=== PATIENT | female | born 1965 | race Caucasian/White ===

== ENCOUNTER 2017-11-03 07:42 | Outpatient (RCR) | payer MEDICARE, MEDICAID ==
[~2017-11-03 07:42] MED LIST: ABILIF5PT PO; ACET-1966 PO; ACET-2043 PO; ACET500L35 PO; ALBU1.257 IH; ALBU8.5H12 IH; ALE70 PO; ARI2 PO; AZIT-1 PO; BACOUD TP; BISA-236 RC; CALC-515 PO; CALC-707 PO; CALC-762 PO; CALC-845 PO; CALC1TAB24 PO; CALC1TAB88 PO; CALC500T6 PO; CHLO1LIQ2 MC; CHLORHEXIDINE MT; CLIN300C91 PO; CLO5 PO; CLON-331 PO; CLON0.5T66 PO; DIV250 PO; DIV500ER PO; DIVA125C12 PO; DOCU50LI PO; DOCU60SY PO; DUL30 PO; ENOX40DI8 SQ; GUAI-244 PO; GUAI-537 PO; HYDR-6045 RC; HYDR12.556 PO; HYDR12.558 PO; HYDR28.415 TP; HYDR28GE3 TP; LEV75 PO; LEVA1.2527 IH; LEVE100034 PO; LEVE500 PO; LEVO-3 PO; LEVO-85 PO; LEVO100T95 PO; LEVO88TA42 PO; LOPE-84 PO; LOR5/325 PO; LORA2VIA IV; MAG-66 PO; MELA1DRO PO; MELA3TAB45 PO; MENT118G TP; METH85CR12 TP; MOM PO; MULT-1077 PO; MULT-1081 PO; MULT-820 PO; NSNAS; OSE75 PO; OXYGENHOME INH; OXYM-15 NS; RAN150 PO; RANI75TA5 PO; SCOT TD; SEN100 PO; SERT-179 PO; SERT25TA90 PO; TYLENOL#3; [UNRECOGNIZED DRUG - CODE] PO; [UNRECOGNIZED DRUG - CODE] PO; [UNRECOGNIZED DRUG - CODE] PO; [UNRECOGNIZED DRUG - CODE] TP; [UNRECOGNIZED DRUG - CODE] TP; [UNRECOGNIZED DRUG - OTHER] IV
[2017-11-03] MEDS ORDERED: NS(*) 0.9% 100 ML BAG 100 ML IVPB PRN (08:25)
[2017-11-03] MEDS ORDERED: DEXTROSE 5%(*) 100 ML BAG 100 ML IVPB PRN (08:25)
[2017-11-03] MEDS ORDERED: LIDOCAINE/SOD BICARB 8.4% SYR ID PRN (08:25)
[2017-11-03 10:29] VITALS: BP 124/82
[2017-11-03] MEDS ORDERED: ZOLEDRONIC ACID 5 MG/100ML BTL 100 ML IVPB ONE (11:15)
[2017-11-03] MEDS ORDERED: DULO60CA7 (12:19)
[2017-11-03] MEDS ORDERED: DOCU50LI PO (12:19)
[2017-11-03] MEDS ORDERED: GUAI-244 PO (12:19)
[2017-11-03] MEDS ORDERED: RANI-366 PO (12:19)
[2017-11-03] MEDS ORDERED: [UNRECOGNIZED DRUG - CODE] PO (12:19)
== END 2017-12-06 08:56 | disposition home or self-care (01) ==
LOC: SPU 07:42
PROVIDERS: ATTEND Family Medicine
DX: M81.8 Other osteoporosis without current pathological fracture (principal)
CPT/HCPCS: 82565; 96361; 96365; J3489; J7050

== ENCOUNTER 2018-02-21 13:51 | Emergency (ER) | payer MEDICARE, MEDICAID ==
[~2018-02-21 13:51] MED LIST changes: +DULO60CA7; -LORA2VIA IV; +LORA2VIA2 IV; +RANI-366 PO; +[UNRECOGNIZED DRUG - CODE] PO
[2018-02-21] MEDS ORDERED: NS(*) 0.9% 500 ML BAG 500 ML IV ONE (14:07)
--- NOTE | 2018-02-21 14:14 | ER Report ---
History and Physical Time Seen By MD: 14:00 Hx. of Stated Complaint: pt walking and had a 1 minute petit mal seizure and fell on ground on L side, lethargic for about 8 min after, 45 min ago HPI/ROS CHIEF COMPLAINT: Seizure resulting in a fall HISTORY OF PRESENT ILLNESS: 52-year-old female patient presents to the emergency room with complaint of a seizure which resulted in a fall. The patient is a resident of the [facility], and does have a history of seizures. Patient does wear a protective helmet to protect her head which she does have seizures and falls. Patient's caregiver states that she was walking outside when she started having seizure and fell onto her left side. Leading hard on her left hip and hitting her head on the ground. She states that the seizure lasted approximately 90 seconds to 2 minutes. She states that her recovery time was proximally 8 minutes. Patient has since been yelling out, which is an indication of either pain or anxiety. REVIEW OF SYSTEMS: Respiratory: No cough, no dyspnea. Cardiovascular: No chest pain, no palpitations. Gastrointestinal: No vomiting, no abdominal pain. Musculoskeletal: As noted above Allergies: Coded Allergies: Penicillins (Verified Allergy, Mild, SWELLING, 02/24/17) 07/16/13- Spoke with patient's mother and clarified allergy to PCN. Reported swelling and hives when given penicillin as an . Patient tolerates Imipenem. Lauren Ocampo, PharmD, BCOP ibuprofen (Verified Allergy, Mild, CANNOT TAKE WHILE ON DEPAKOTE, 02/24/17) aspirin (Verified Adverse Reaction, Mild, CANNOT TAKE WHILE ON DEPAKOTE, 02/24/17) naproxen (Verified Adverse Reaction, Mild, CANNOT TAKE WHILE ON DEPAKOTE, 02/24/17) Home Meds Reported Medications Docusate Sodium (SILACE) 50 Mg/5 Ml Liquid, 10 MG PO TID 11/03/17 Ranitidine Hcl (ZANTAC) 150 Mg Tablet, 150 MG PO BID, TAB 11/03/17 Calcium Carbonate/Vitamin D3 (OYSTER SHELL CALCIUM +D TABLET) 1 Each Tablet, 1 EACH PO 11/03/17 Duloxetine HCl (Duloxetine HCl) 60 Mg Capsule. 11/03/17 Methyl Salicylate/Menthol (THERA-GESIC ANALGESIC CREAM) 85 Gm Cream..g., 85 GM TP PRN 04/09/15 Docusate Sodium (SILACE) 60 Mg/15 Ml Syrup, 60 MG PO TID 04/09/15 Skin Cleanser (PERIFRESH) 3,840 Ml Cleanser, 3840 ML TP PRN 04/09/15 Oxygen (OXYGEN) Inha, 3 L INH QPM, L 04/09/15 Oxygen (OXYGEN) Inha, 1 L INH DAILY, L 04/09/15 Calcium Carbonate/Vitamin D3 (OYSTER SHELL CALCIUM + D TAB) 1 Each Tablet, 1 EACH PO BID 04/09/15 Melatonin (MELATONIN) 3 Mg Tablet.er, 1.5 MG PO DAILY 04/09/15 Levothyroxine Sodium (LEVOTHYROXINE SODIUM) 100 Mcg Tablet, 100 MCG PO QDAY 04/09/15 Levetiracetam (LEVETIRACETAM) 1,000 Mg Tablet, 1000 MG PO BID, TAB 04/09/15 Hydrocortisone/Aloe Vera (HYDROCORTISONE 1% OINTMENT) 28 Gm Oint...g., 28 GM TP PRN 04/09/15 Multivit With Calcium,Iron,Min (ESSENTIAL DAILY) 1 Each Tablet, 1 EACH PO DAILY 04/09/15 Divalproex Sodium (DIVALPROEX SODIUM) 125 Mg Cap.sprink, 375 MG PO DAILY, CAP 04/09/15 Divalproex Sodium (DIVALPROEX SODIUM) 125 Mg Cap.sprink, 250 MG PO TID, CAP 04/09/15 Clonazepam (CLONAZEPAM) 0.5 Mg Tablet, 0.5 MG PO TID, #6 TAB 04/09/15 Saline (AYR SALINE NASAL GEL) 14.1 Gm Gel, 14.1 GM NA PRN, GEL 04/09/15 Calcium Carbonate/Mag Hydrox (ANTACID CHEWABLE TABLET) 1 Each Tab.chew, 500 MG PO PRN, TAB.CHEW 04/09/15 Mag Hydrox/Al Hydrox/Simeth (MAALOX MAXIMUM STRENGTH SUSP) 355 Ml Oral.susp, 5 ML PO PRN PRN for GAS/HEARTBURN 07/08/13 Hydrochlorothiazide (HYDROCHLOROTHIAZIDE) 12.5 Mg Capsule, 1 TAB PO QDAY, CAPSULE TAKE ONE CAPSULE BY MOUTH EVERY DAY 07/08/13 Menthol (BIOFREEZE) 118 Ml Gel..ml., 1 GABRIELLE TP PRN for PAIN 07/08/13 Bacitracin (BACITRACIN ZINC) 0.9 Gm Oint, 0.9 GM TP PRN for RASH 07/08/13 Hydrocortisone (ANUSOL-HC) 30 Gm Cream..g., 30 GM RC PRN for HEMORRHOIDS 07/08/13 Loperamide Hcl (ANTI-DIARRHEAL) 2 Mg Capsule, 2 MG PO PRN PRN for DIARRHEA, CAPSULE 2 tabs after 2 loose stools 07/08/13 Magnesium Hydroxide (MILK OF MAGNESIA) 400 Mg/5 Ml Oral.susp, 30 ML PO PRN PRN for CONSTIPATION 04/18/13 Chlorhexidine (CHLORHEXIDINE FLAVOR) 1 Ml Liquid, 18 ML MC QODAY 04/18/13 Aripiprazole (ABILIFY) 5 Mg Tablet, 10 MG PO QHS 03/21/13 Duloxetine Hcl (Cymbalta) 30 Mg Capcr, 60 MG PO DAILY 03/01/12 Calcium Carbonate/Simethicone (Tums Plus Tab Chew Assorted) 1 Tab.chew Tab.chew, 1 TAB.CHEW PO TID, 0 Refills 07/21/09 Discontinued Reported Medications Guaifenesin (ROBAFEN) 100 Mg/5 Ml Liquid, 100 MG PO PRN 11/03/17 Guaifenesin (WAL-TUSSIN) 100 Mg/5 Ml Liquid, 10 ML PO Q4-6H PRN for prn 04/09/15 Guaifenesin (ROBAFEN) 100 Mg/5 Ml Liquid, 100 MG PO PRN 04/09/15 Ranitidine Hcl (RANITIDINE HCL) 75 Mg Tablet, 150 MG PO BID 04/09/15 Skin Cleanser (PERIFRESH) 3,840 Ml Cleanser, 3840 ML TP BID 04/09/15 Hydrocortisone (CORTIZONE 10) 28 Gm Gel..gram., 28 GM TP PRN for ITCHING 07/08/13 Discontinued Scripts Levofloxacin 500 Mg Tab (LEVAQUIN 500 MG TAB) 500 Mg Tablet, 500 MG PO q24 for 5 Days, #5 TAB 0 Refills Prov:CONSTANTIN JEFF SPLICER APPRENTICE 08/28/16 Past Medical/Surgical History Patient has a past medical history of seizures, pneumonia, recurrent pronation of right ankle, scoliosis, osteoporosis, foot fracture, C6, C7 fracture, hypothyroidism, developmental delayed Patient has a surgical history of vagus nerve stimulator. Reviewed Nurses Notes: Yes Hx Smoking: No Smoking Status: Never Smoker Exposure to Second Hand Smoke?: No Hx Substance Use Disorder: No Hx Alcohol Use: No Constitutional Vital Sign - Last 24 Hours 02/21/18 02/21/18 02/21/18 02/21/18 14:04 14:06 14:21 14:36 Temp 97.0 Pulse 110 109 118 ??? Resp 18 Pulse Ox 89 80 92 O2 Delivery Room Air 02/21/18 02/21/18 02/21/18 02/21/18 14:51 15:06 15:21 15:36 Pulse ? 115 ??? Pulse Ox 91 02/21/18 02/21/18 02/21/18 02/21/18 15:41 15:46 15:58 16:01 Pulse 97 104 B/P (MAP) 144/92 (109) 126/90 (102) Pulse Ox 99 99 02/21/18 02/21/18 02/21/18 02/21/18 16:16 16:20 16:31 16:31 Pulse 101 99 Resp 18 B/P (MAP) 126/91 (103) Pulse Ox 100 98 O2 Flow Rate 2.0 02/21/18 02/21/18 02/21/18 02/21/18 16:40 16:46 17:00 17:01 Pulse 107 112 Resp 13 12 B/P (MAP) 109/83 (92) 125/85 (98) Pulse Ox 100 99 02/21/18 02/21/18 02/21/18 02/21/18 17:16 17:20 17:31 17:40 Pulse 108 ??? Resp 7 B/P (MAP) 121/114 (116) ???/??? (1665) Pulse Ox 98 97 02/21/18 02/21/18 02/21/18 02/21/18 17:45 18:00 18:15 18:20 Pulse ??? 96 88 Resp 14 12 B/P (MAP) 111/76 (88) 114/93 (100) Pulse Ox 98 99 02/21/18 02/21/18 02/21/18 02/21/18 18:30 18:40 18:45 19:00 Pulse 100 93 87 Resp 14 17 12 B/P (MAP) 106/75 (85) 100/77 (85) Pulse Ox 97 94 94 02/21/18 02/21/18 02/21/18 02/21/18 19:15 19:20 19:30 19:40 Pulse 88 91 Resp 12 16 B/P (MAP) 106/70 (82) 101/74 (83) Pulse Ox 94 90 02/21/18 02/21/18 02/21/18 19:45 20:00 20:15 Pulse 90 ? Resp 15 Pulse Ox 94 Physical Exam General Appearance: The patient is alert, has no immediate need for airway protection and no current signs of toxicity. Respiratory: Chest is non tender, lungs are clear to auscultation. Cardiac: regular rate and rhythm Gastrointestinal: Abdomen is soft and non tender, no masses, bowel sounds normal. Musculoskeletal: Neck: Neck is supple and non tender. Extremities have full range of motion and are non tender. Patient is yelling out whenever I touch her, there is no bruising noted. Patient was holding a large glass of soda from [employer] in her left hand. Skin: No rashes or lesions. DIFFERENTIAL DIAGNOSIS: After history and physical exam differential diagnosis was considered for contusion, fracture, intracranial hemorrhage. Medical Decision Making Data Points Result Diagram: 02/21/18 1619 02/21/18 1619 Laboratory Hematology Test 02/21/18 16:19 Red Blood Count 4.71 M/uL (4.17-5.56) Mean Corpuscular Volume 98.9 fL (80.0-96.0) Mean Corpuscular Hemoglobin 33.4 pg (26.0-33.0) Mean Corpuscular Hemoglobin Concent 33.7 g/dL (32.0-36.0) Red Cell Distribution Width 13.5 % (11.5-14.5) Mean Platelet Volume 8.9 fL (7.2-11.1) Neutrophils (%) (Auto) 64.1 % (39.4-72.5) Lymphocytes (%) (Auto) 23.1 % (17.6-49.6) Monocytes (%) (Auto) 11.8 % (4.1-12.4) Eosinophils (%) (Auto) 0.4 % (0.4-6.7) Basophils (%) (Auto) 0.6 % (0.3-1.4) Nucleated RBC Relative Count (auto) 0.0 /100WBC Neutrophils # (Auto) 6.3 K/uL (2.0-7.4) Lymphocytes # (Auto) 2.3 K/uL (1.3-3.6) Monocytes # (Auto) 1.2 K/uL (0.3-1.0) Eosinophils # (Auto) 0.0 K/uL (0.0-0.5) Basophils # (Auto) 0.1 K/uL (0.0-0.1) Nucleated RBC Absolute Count (auto) 0.00 K/uL Peripheral Blood Smear Yes Y/N Prothrombin Time 12.2 seconds (12.0-14.4) Prothromb Time International Ratio 0.90 Activated Partial Thromboplast Time 25 seconds (23-35) Sodium Level 140 mmol/L (137-145) Potassium Level 3.7 mmol/L (3.5-5.0) Chloride Level 99 mmol/L (98-107) Carbon Dioxide Level 34 mmol/L (22-31) Blood Urea Nitrogen 18 mg/dl (7-18) Creatinine 0.70 mg/dl (0.52-1.04) Glomerular Filtration Rate Calc > 60.0 Random Glucose 120 mg/dl (75-110) Calcium Level 9.7 mg/dl (8.4-10.2) Total Bilirubin 0.2 mg/dl (0.2-1.3) Aspartate Amino Transf (AST/SGOT) 40 U/L (0-35) Alanine Aminotransferase (ALT/SGPT) 22 U/L (0-56) Alkaline Phosphatase 64 U/L (0-126) Total Protein 6.8 g/dl (6.3-8.2) Albumin 3.6 g/dl (3.5-5.0) Amylase Level 109 U/L (0-110) Lipase 125 U/L (23-300) Human Chorionic Gonadotropin, Qual Negative (NEGATIVE) Chemistry Test 02/21/18 16:19 White Blood Count 9.9 k/uL (4.5-11.0) Red Blood Count 4.71 M/uL (4.17-5.56) Hemoglobin 15.7 g/dL (12.0-16.0) Hematocrit 46.6 % (34.0-47.0) Mean Corpuscular Volume 98.9 fL (80.0-96.0) Mean Corpuscular Hemoglobin 33.4 pg (26.0-33.0) Mean Corpuscular Hemoglobin Concent 33.7 g/dL (32.0-36.0) Red Cell Distribution Width 13.5 % (11.5-14.5) Platelet Count 144 K/uL (150-450) Mean Platelet Volume 8.9 fL (7.2-11.1) Neutrophils (%) (Auto) 64.1 % (39.4-72.5) Lymphocytes (%) (Auto) 23.1 % (17.6-49.6) Monocytes (%) (Auto) 11.8 % (4.1-12.4) Eosinophils (%) (Auto) 0.4 % (0.4-6.7) Basophils (%) (Auto) 0.6 % (0.3-1.4) Nucleated RBC Relative Count (auto) 0.0 /100WBC Neutrophils # (Auto) 6.3 K/uL (2.0-7.4) Lymphocytes # (Auto) 2.3 K/uL (1.3-3.6) Monocytes # (Auto) 1.2 K/uL (0.3-1.0) Eosinophils # (Auto) 0.0 K/uL (0.0-0.5) Basophils # (Auto) 0.1 K/uL (0.0-0.1) Nucleated RBC Absolute Count (auto) 0.00 K/uL Peripheral Blood Smear Yes Y/N Prothrombin Time 12.2 seconds (12.0-14.4) Prothromb Time International Ratio 0.90 Activated Partial Thromboplast Time 25 seconds (23-35) Glomerular Filtration Rate Calc > 60.0 Calcium Level 9.7 mg/dl (8.4-10.2) Total Bilirubin 0.2 mg/dl (0.2-1.3) Aspartate Amino Transf (AST/SGOT) 40 U/L (0-35) Alanine Aminotransferase (ALT/SGPT) 22 U/L (0-56) Alkaline Phosphatase 64 U/L (0-126) Total Protein 6.8 g/dl (6.3-8.2) Albumin 3.6 g/dl (3.5-5.0) Amylase Level 109 U/L (0-110) Lipase 125 U/L (23-300) Human Chorionic Gonadotropin, Qual Negative (NEGATIVE) Coagulation Test 02/21/18 16:19 Prothrombin Time 12.2 seconds Prothromb Time International Ratio 0.90 Activated Partial Thromboplast Time 25 seconds EKG/Imaging Imaging EXAMINATION: CT Cervical spine without intravenous contrast HISTORY: Trauma. Fall with pain. COMPARISON: 02/24/2017. TECHNIQUE: Axial images were obtained from the skull base through the upper thoracic spine without IV contrast administration. Coronal and sagittal reformatted images were obtained from the axial source data. One of the following dose optimization techniques was utilized in the performance of this exam: Automated exposure control; adjustment of the mA and/or kV according to the patient's size; or use of an iterative reconstruction technique. Specific details can be referenced in the facility's radiology CT exam operational policy. FINDINGS: Alignment: Normal. Cranio-cervical junction: Negative. Vertebral bodies: No evidence of acute fracture. Posterior elements: No evidence of acute fracture. Multilevel facet hypertrophy. Bony ankylosis of the right C3-4 facet joint. Hardware: None. Disc Spaces: Endplate osteophytes throughout the cervical spine. Intervertebral disc heights are maintained. Soft tissues: No paraspinal soft tissue swelling or hematoma. Fat stranding in the soft tissues near the right shoulder. Visualized upper chest: Left vagal nerve stimulator. IMPRESSION: No evidence of acute fracture of the cervical spine. Multilevel disc and facet degenerative changes in the cervical spine. Soft tissues appear swollen near the right shoulder. Report Dictated By: Arie Jeff MD at 02/21/2018 6:29 PM Report E-Signed By: Arie Jeff MD at 02/21/2018 6:43 PM CHEST SINGLE AP Indication: Fall with pain.. Comparison: 08/28/2016. Findings: Cardiac silhouette remains mildly enlarged but unchanged. Mediastinal silhouet te and pulmonary vessels within normal limits. Lung volumes are decreased bilaterally causing accentuation of interstitium. No focal areas of consolidation. No pneumothorax or pleural effusion. No discrete nodule. Upper abdomen is unremarkable. No acute bony abnormality. Electronic device is again seen overlying the left chest. IMPRESSION: 1. No acute cardiopulmonary process. No indication of thoracic trauma. Report Dictated By: Javier Worthy at 02/21/2018 4:19 PM Report E-Signed By: Javier Worthy at 02/21/2018 4:20 PM EXAMINATION: Head CT without intravenous contrast HISTORY: Trauma. COMPARISON: 02/24/2017. TECHNIQUE: Contiguous axial images were obtained from the skull base to the vertex without intravenous contrast. Sagittal and coronal reformatted images are also submitted. One of the following dose optimization techniques was utilized in the performance of this exam: Automated exposure control; adjustment of the mA and/or kV according to the patient's size; or use of an iterative reconstruction technique. Specific details can be referenced in the facility's radiology CT exam operational policy. 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 Unchanged region of encephalomalacia in the lateral left temporal lobe. Small region of encephalomalacia in the lateral right temporal lobe is unchanged. No midline shift, acute hemorrhage, acute infarct, or mass. Calvarium / scalp: Mild right frontal, left frontal, and left occipital scalp soft tissue thickening which is unchanged. Hyperostosis frontalis interna. No acute fracture. Skull base / visualized face: Mild rightward bowing of the nasal septum. Visualized sinuses / orbits: Trace mucosal thickening in the maxillary sinuses. IMPRESSION: No CT evidence of acute intracranial pathology. Unchanged enlargement of the lateral ventricles. Unchanged regions of encephalomalacia in the lateral temporal lobes. Report Dictated By: Arie Jeff MD at 02/21/2018 6:09 PM Report E-Signed By: Arie Jeff MD at 02/21/2018 6:25 PM EXAMINATION: Pelvis radiograph single view HISTORY: Fall with pain. COMPARISON: 02/24/2017. FINDINGS: A single AP supine view of the pelvis is obtained. Bones: No evidence of acute fracture. Joint spaces: Sacroiliac joints, pubic symphysis, and hip joints are unremarkable. There are multilevel disc and facet degenerative changes in the lumbar spine. Hardware: None. Alignment: Mild left convex curvature of the lumbar spine. Soft tissues: Focal calcification in the soft tissues lateral to the right hip, unchanged. IMPRESSION: No evidence of acute fracture of the pelvis. Report Dictated By: Arie Jeff MD at 02/21/2018 6:25 PM Report E-Signed By: Arie Jeff MD at 02/21/2018 6:29 PM ED Course/Re-evaluation ED Course Patient was admitted to an exam room, history and physical were obtained. Differential diagnoses were considered. On examination patient was complaining of pain all over, heart is regular, abdomen was soft and non-tender, lungs are clear. With the patient having a seizure and falling she did a chest x-ray, pelvis x-ray and CT scan of the head and cervical spine were done. Patient was placed in a c-collar. Due to the patient's mental condition we were unable to do that without sedating her. We did initially try some Zyprexa with no improvement. We also gave patient 200 mg of IM ketamine. She was able to relax, falsely. We were able to get IV started, labs checked which were unremarkable and a an hCG. By the time we did have those results the patient had awoken. We were unable to get the imaging without sedating her again. We did give her an additional 100 mg of ketamine IV. We will get the imaging studies which were negative. The patient was able to rest. When she was fully awake, was able walk to the bathroom we did discharge patient home. She is continue with her normal medications. She is return to the emergency room with any other concerns. The caregiver verbalized understanding and agreement with plan. Decision to Disposition Date: Feb 21, 2018 Decision to Disposition Time: 19:42 Depart Departure Latest Vital Signs Vital Signs Date Time Temp Pulse Resp B/P (MAP) Pulse Ox O2 Delivery O2 Flow Rate FiO2 02/21/18 20:15 ??? 02/21/18 19:45 15 94 02/21/18 19:40 101/74 (83) 02/21/18 16:31 2.0 02/21/18 14:04 97.0 Room Air Impression: Primary Impression: Seizure Additional Impression: Contusion of left hip Condition: Stable Disposition: HOME OR SELF-CARE Referrals: DIONI FLETCHER DO (PCP) Patient Instructions: Contusion in Adults (ED) Additional Instructions: Limit activity by pain. Increase fluid intake. Get plenty of rest. Continue with your normal medications. Return to the ER if condition worsens. Follow up with your primary care provider in the next week. Take Tylenol as needed for pain. Wear your helmet when you are up moving around. Problem Qualifiers Additional Impression: Contusion of left hip Encounter type: initial encounter Qualified Codes: S70.02XA - Contusion of left hip, initial encounter OLESYA RODAS Feb 21, 2018 14:14
[2018-02-21] MEDS ORDERED: OLANZapine 10 MG VIAL IM ONLY ONE (14:20)
[2018-02-21] MEDS ORDERED: WATER STERILE 10 ML VIAL IM ONLY ONE (14:20)
[2018-02-21] MEDS ORDERED: KETAMINE HCL 500 MG/5 ML VIAL IM ONE (15:05)
[2018-02-21] MEDS ORDERED: LORazepam 2 MG/ML VIAL IVP ONE (16:05)
--- NOTE | 2018-02-21 16:25 | RADIOLOGY IMAGING REPORT ---
FACILITY: [facility] - [place] PATIENT NAME: Glenys Saucedo : 1965 MR: [id number] V: [id number] EXAM DATE: ORDERING PHYSICIAN: OLESYA RODAS TECHNOLOGIST: Location: [facility] - [place] Patient: Glenys Saucedo : 1965 Visit/Account:[id number] Date of Sevice: 02/21/2018 CHEST SINGLE AP Indication: Fall with pain.. Comparison: 08/28/2016. Findings: Cardiac silhouette remains mildly enlarged but unchanged. Mediastinal silhouette and pulmonary vesse ls within normal limits. Lung volumes are decreased bilaterally causing accentuation of interstitium. No focal areas of conso lidation. No pneumothorax or pleural effusion. No discrete nodule. Upper abdomen is unremarkable. No acute bony abnormality. Electronic device is again seen overlying the left chest. IMPRESSION: 1. No acute cardiopulmonary process. No indication of thoracic trauma. Report Dictated By: Javier Worthy at 02/21/2018 4:19 PM Report E-Signed By: Javier Worthy at 02/21/2018 4:20 PM WSN:[id number]
[2018-02-21 16:31] LABS: PLATELET COUNT, AUTOMATED 144 K/uL (150-450)
[2018-02-21 16:59] LABS: INR 0.9
[2018-02-21] MEDS ORDERED: KETAMINE HCL 500 MG/5 ML VIAL IVP ONE (17:25)
[2018-02-21] MEDS ORDERED: DIPHTH/TETANUS/ACEL. PERTUSSIS IM ONLY ONE (18:15)
--- NOTE | 2018-02-21 18:28 | RADIOLOGY IMAGING REPORT ---
FACILITY: [facility] - [place] PATIENT NAME: Glenys Saucedo : 1965 MR: [id number] V: [id number] EXAM DATE: ORDERING PHYSICIAN: OLESYA RODAS TECHNOLOGIST: [place] [facility] [place] Glenys Sauced[place] : 1965 Visit/Account:[id number] Date of Sevice: 02/21/2018 EXAMINATION: Head CT without intravenous contrast HISTORY: Trauma. COMPARISON: 02/24/2017. TECHNIQUE: Contiguous axial images were obtained from the skull base to the vertex without intraven ous contrast. Sagittal and coronal reformatted images are also submitted. One of the following dose optimization techniques was utilized in the performance of this exam: Autom ated exposure control; adjustment of the mA and/or kV according to the patient's size; or use of an i terative reconstruction technique. Specific details can be referenced in the facility's radiology C T exam operational policy. FINDINGS: Brain and intracranial structures: Stable enlargement of the lateral ventricles with disproportionat e prominence of the occipital horns of the lateral ventricles (colpocephaly). Unchanged region of enc ephalomalacia in the lateral left temporal lobe. Small region of encephalomalacia in the lateral righ t temporal lobe is unchanged. No midline shift, acute hemorrhage, acute infarct, or mass. Calvarium / scalp: Mild right frontal, left frontal, and left occipital scalp soft tissue thickening which is unchanged. Hyperostosis frontalis interna. No acute fracture. Skull base / visualized face: Mild rightward bowing of the nasal septum. Visualized sinuses / orbits: Trace mucosal thickening in the maxillary sinuses. IMPRESSION: No CT evidence of acute intracranial pathology. Unchanged enlargement of the lateral ventricles. Unchanged regions of encephalomalacia in the lateral temporal lobes. Report Dictated By: Arie Bird MD at 02/21/2018 6:09 PM Report E-Signed By: Arie Bird MD at 02/21/2018 6:25 PM WSN:[id number]
--- NOTE | 2018-02-21 18:33 | RADIOLOGY IMAGING REPORT ---
FACILITY: [facility] PATIENT NAME: Glenys Saucedo : 1965 MR: [id number] V: [id number] EXAM DATE: ORDERING PHYSICIAN: OLESYA RODAS TECHNOLOGIST: [place] [facility] [place] Patient: Glenys Saucedo : 1965 Visit/Account:[id number] Date of Sevice: 02/21/2018 EXAMINATION: Pelvis radiograph single view HISTORY: Fall with pain. COMPARISON: 02/24/2017. FINDINGS: A single AP supine view of the pelvis is obtained. Bones: No evidence of acute fracture. Joint spaces: Sacroiliac joints, pubic symphysis, and hip joints are unremarkable. There are multile patience disc and facet degenerative changes in the lumbar spine. Hardware: None. Alignment: Mild left convex curvature of the lumbar spine. Soft tissues: Focal calcification in the soft tissues lateral to the right hip, unchanged. IMPRESSION: No evidence of acute fracture of the pelvis. Report Dictated By: Arie Bird MD at 02/21/2018 6:25 PM Report E-Signed By: Arie Bird MD at 02/21/2018 6:29 PM WSN:[id number]
--- NOTE | 2018-02-21 18:47 | RADIOLOGY IMAGING REPORT ---
[place] [facility] [place] Glenys Saucedo : 1965 MR: [id number] V: [id number] EXAM DATE: [id number] ORDERING PHYSICIAN: OLESYA RODAS TECHNOLOGIST: Location: [facility] - [place] Patient: Glenys Saucedo : 1965 Visit/Account:[id number] Date of Sevice: 02/21/2018 EXAMINATION: CT Cervical spine without intravenous contrast HISTORY: Trauma. Fall with pain. COMPARISON: 02/24/2017. TECHNIQUE: Axial images were obtained from the skull base through the upper thoracic spine without I V contrast administration. Coronal and sagittal reformatted images were obtained from the axial [facility] e data. One of the following dose optimization techniques was utilized in the performance of this exam: Autom ated exposure control; adjustment of the mA and/or kV according to the patient's size; or use of an i terative reconstruction technique. Specific details can be referenced in the facility's radiology C T exam operational policy. FINDINGS: Alignment: Normal. Cranio-cervical junction: Negative. Vertebral bodies: No evidence of acute fracture. Posterior elements: No evidence of acute fracture. Multilevel facet hypertrophy. Bony ankylosis of th e right C3-4 facet joint. Hardware: None. Disc Spaces: Endplate osteophytes throughout the cervical spine. Intervertebral disc heights are main tained. Soft tissues: No paraspinal soft tissue swelling or hematoma. Fat stranding in the soft tissues near the right shoulder. Visualized upper chest: Left vagal nerve stimulator. IMPRESSION: No evidence of acute fracture of the cervical spine. Multilevel disc and facet degenerative changes in the cervical spine. Soft tissues appear swollen near the right shoulder. Report Dictated By: Arie Bird MD at 02/21/2018 6:29 PM Report E-Signed By: Arie Bird MD at 02/21/2018 6:43 PM WSN:[id number]
[2018-02-21 19:40] VITALS: BP 101/74
== END 2018-02-21 20:32 | disposition home or self-care (01) ==
LOC: ER 14:10
DX: R56.9 Unspecified convulsions (principal); S70.02XA Contusion of left hip, initial encounter; W18.30XA Fall on same level, unspecified, initial encounter; Y93.01 Activity, walking, marching and hiking
CPT/HCPCS: 36415; 71045; 82150; 83690; 84703; 85025; 85610; 85730; 90471; 90715; 96372; 96374; 96375; 99284; A4216; J2060; J3490; J7040; 70450; 72125; 72170; 82040; 82247; 82310; 82374; 82435; 82565; 82947; 84075; 84132; 84155; 84295; 84450; 84460; 84520; L0172

== ENCOUNTER → 2018-05-12 | Outpatient (REF) | payer MEDICARE, MEDICAID ==
[~2018-05-12] MED LIST changes: -RANI75TA5 PO; +RANI75TA51 PO
== END ==
LOC: ZZSENDIN 10:51
PROVIDERS: ATTEND Family Medicine
DX: R35.0 Frequency of micturition (principal)
CPT/HCPCS: 81001

== ENCOUNTER → 2018-05-12 | Outpatient (CLI) | payer MEDICARE, MEDICAID ==
--- NOTE | 2018-05-12 16:26 | RADIOLOGY IMAGING REPORT ---
[place] [facility] [place] Glenys Saucedo : 1965 MR: [id number] V: [id number] EXAM DATE: ORDERING PHYSICIAN: HAZEL GARCIA TECHNOLOGIST: Location: [facility] - [place] Patient: Glenys Saucedo : 1965 Visit/Account:[id number] Date of Sevice: 05/12/2018 CHEST PA LAT History: Cough. Decreased O2 sats. History of pneumonia. FINDINGS: Comparison studies: Comparison chest x-ray 02/21/2018 and 01/19/2016 Tubes and Lines: None. Lungs and pleura: Interval development of a subtle 2.5 cm nodular opacity along the right cardiac b order probably located in the right middle lobe best seen in the frontal view. Lung parenchyma is ot herwise well-aerated. Mediastinum: normal. Cardiac silhouette: normal . Osseous structures: Unremarkable for age . Additional findings: Implanted neurostimulator again noted. IMPRESSION: Small area of presumed tumefactive consolidation right middle lobe raising concern for early pneumo yomi. I would recommend short-term follow-up since a developing neoplasm cannot be excluded. Report Dictated By: Vamshi Fong MD at 05/12/2018 4:19 PM Report E-Signed By: Vamshi Fong MD at 05/12/2018 4:23 PM WSN:[email or web address]
== END ==
LOC: RAD 15:10
PROVIDERS: ATTEND Family Medicine
DX: R05 Cough (principal)
CPT/HCPCS: 71046

== ENCOUNTER → 2018-05-23 | Outpatient (CLI) | payer MEDICARE, MEDICAID ==
[~2018-05-23] MED LIST changes: -OXYM-15 NS; +OXYM30SP22 NS
--- NOTE | 2018-05-23 11:08 | RADIOLOGY IMAGING REPORT ---
FACILITY: [facility] - [place] PATIENT NAME: Glenys Saucedo : 1965 MR: [id number] V: [id number] EXAM DATE: ORDERING PHYSICIAN: DIONI FLETCHER TECHNOLOGIST: Location: [facility] Patient: Glenys Saucedo : 1965 Visit/Account:[id number] Date of Sevice: 05/23/2018 Exam type: CHEST PA LAT History: Pneumonia Comparison: May 12, 2018. Findings: Patchy airspace consolidation in the right middle lobe appears slightly increased. Mild streaky cons olidation left lung base also new since the prior study. There is no evidence of pleural effusions o r pulmonary edema. Cardiac silhouette is normal in size. Implanted neural stimulator again seen IMPRESSION: 1. Patchy airspace consolidation the right middle lobe slightly increased consistent with the histor y of pneumonia Slight increase in streaky consolidation in the left lung base which may represent atelectasis or dev eloping infiltrate Report Dictated By: Heike Velazquez MD at 05/23/2018 10:37 AM Report E-Signed By: Heike Velazquez MD at 05/23/2018 11:04 AM WSN:[email or web address]
== END ==
LOC: RAD 09:28
PROVIDERS: ATTEND Family Medicine
DX: J18.9 Pneumonia, unspecified organism (principal); J98.11 Atelectasis
CPT/HCPCS: 71046

== ENCOUNTER 2018-06-05 13:33 | Emergency (ER) | payer MEDICARE, MEDICAID ==
--- NOTE | 2018-06-05 14:03 | ER Report ---
History and Physical Time Seen By MD: 14:03 Hx. of Stated Complaint: CAREPROVIDER REPORTS PT HAD A SEIZURE AT ~0700. PT RECENTLY TX FOR PNEUMONIA, FINISHED ABX. PT WAS "UNRESPONSIVE, NOT ACTING HERSELF" HPI/ROS 52-year-old female with a history of seizure disorder and developmental delay. Is a resident at the [facility]. She has been recently treated for pneumonia with antibiotics and is being followed by her primary physician. The staff brought her to the emergency department stating that she normally only has one seizure a month and she has had 3 this month. They also state that she seems tired and not herself. She is otherwise at her baseline, taking by mouth and interacting with other staff. Her seizures are not different, but he doesn't remember was more than her usual. She is not coughing. He is afebrile. She is not short of breath. No nausea vomiting or diarrhea. Remainder of the 14 system rev: Yes Allergies: Coded Allergies: Penicillins (Verified Allergy, Mild, SWELLING, 06/05/18) 07/16/13- Spoke with patient's mother and clarified allergy to PCN. Reported swelling and hives when given penicillin as an infant. Patient tolerates Imipenem. Lauren Ocampo, PharmD, BCOP ibuprofen (Verified Allergy, Mild, CANNOT TAKE WHILE ON DEPAKOTE, 06/05/18) aspirin (Verified Adverse Reaction, Mild, CANNOT TAKE WHILE ON DEPAKOTE, 06/05/18) naproxen (Verified Adverse Reaction, Mild, CANNOT TAKE WHILE ON DEPAKOTE, 06/05/18) Home Meds Reported Medications Docusate Sodium (SILACE) 50 Mg/5 Ml Liquid, 10 MG PO TID 11/03/17 Ranitidine Hcl (ZANTAC) 150 Mg Tablet, 150 MG PO BID, TAB 11/03/17 Calcium Carbonate/Vitamin D3 (OYSTER SHELL CALCIUM +D TABLET) 1 Each Tablet, 1 EACH PO 11/03/17 Duloxetine HCl (Duloxetine HCl) 60 Mg Capsule. 11/03/17 Methyl Salicylate/Menthol (THERA-GESIC ANALGESIC CREAM) 85 Gm Cream..g., 85 GM TP PRN 04/09/15 Docusate Sodium (SILACE) 60 Mg/15 Ml Syrup, 60 MG PO TID 04/09/15 Skin Cleanser (PERIFRESH) 3,840 Ml Cleanser, 3840 ML TP PRN 04/09/15 Oxygen (OXYGEN) Inha, 3 L INH QPM, L 04/09/15 Oxygen (OXYGEN) Inha, 1 L INH DAILY, L 04/09/15 Calcium Carbonate/Vitamin D3 (OYSTER SHELL CALCIUM + D TAB) 1 Each Tablet, 1 EACH PO BID 04/09/15 Melatonin (MELATONIN) 3 Mg Tablet.er, 1.5 MG PO DAILY 04/09/15 Levothyroxine Sodium (LEVOTHYROXINE SODIUM) 100 Mcg Tablet, 100 MCG PO QDAY 04/09/15 Levetiracetam (LEVETIRACETAM) 1,000 Mg Tablet, 1000 MG PO BID, TAB 04/09/15 Hydrocortisone/Aloe Vera (HYDROCORTISONE 1% OINTMENT) 28 Gm Oint...g., 28 GM TP PRN 04/09/15 Multivit With Calcium,Iron,Min (ESSENTIAL DAILY) 1 Each Tablet, 1 EACH PO DAILY 04/09/15 Divalproex Sodium (DIVALPROEX SODIUM) 125 Mg Cap.sprink, 375 MG PO DAILY, CAP 04/09/15 Divalproex Sodium (DIVALPROEX SODIUM) 125 Mg Cap.sprink, 250 MG PO TID, CAP 04/09/15 Clonazepam (CLONAZEPAM) 0.5 Mg Tablet, 0.5 MG PO TID, #6 TAB 04/09/15 Saline (AYR SALINE NASAL GEL) 14.1 Gm Gel, 14.1 GM NA PRN, GEL 04/09/15 Calcium Carbonate/Mag Hydrox (ANTACID CHEWABLE TABLET) 1 Each Tab.chew, 500 MG PO PRN, TAB.CHEW 04/09/15 Mag Hydrox/Al Hydrox/Simeth (MAALOX MAXIMUM STRENGTH SUSP) 355 Ml Oral.susp, 5 ML PO PRN PRN for GAS/HEARTBURN 07/08/13 Hydrochlorothiazide (HYDROCHLOROTHIAZIDE) 12.5 Mg Capsule, 1 TAB PO QDAY, CAPSULE TAKE ONE CAPSULE BY MOUTH EVERY DAY 07/08/13 Menthol (BIOFREEZE) 118 Ml Gel..ml., 1 GABRIELLE TP PRN for PAIN 07/08/13 Bacitracin (BACITRACIN ZINC) 0.9 Gm Oint, 0.9 GM TP PRN for RASH 07/08/13 Hydrocortisone (ANUSOL-HC) 30 Gm Cream..g., 30 GM RC PRN for HEMORRHOIDS 07/08/13 Loperamide Hcl (ANTI-DIARRHEAL) 2 Mg Capsule, 2 MG PO PRN PRN for DIARRHEA, CAPSULE 2 tabs after 2 loose stools 07/08/13 Magnesium Hydroxide (MILK OF MAGNESIA) 400 Mg/5 Ml Oral.susp, 30 ML PO PRN PRN for CONSTIPATION 04/18/13 Chlorhexidine (CHLORHEXIDINE FLAVOR) 1 Ml Liquid, 18 ML MC QODAY 04/18/13 Aripiprazole (ABILIFY) 5 Mg Tablet, 10 MG PO QHS 03/21/13 Duloxetine Hcl (Cymbalta) 30 Mg Capcr, 60 MG PO DAILY 03/01/12 Calcium Carbonate/Simethicone (Tums Plus Tab Chew Assorted) 1 Tab.chew Tab.chew, 1 TAB.CHEW PO TID, 0 Refills 07/21/09 Reviewed Nurses Notes: Yes Old Medical Records Reviewed: Yes Hx Smoking: No Smoking Status: Never Smoker Exposure to Second Hand Smoke?: No Hx Substance Use Disorder: No Hx Alcohol Use: No Constitutional Vital Sign - Last 24 Hours 06/05/18 06/05/18 06/05/18 06/05/18 13:38 13:40 13:45 14:00 Temp 98.1 Pulse 134 146 Resp 20 B/P (MAP) 122/65 122/65 (84) 118/86 (97) Pulse Ox 90 89 O2 Delivery Nasal Cannula O2 Flow Rate 1.0 06/05/18 06/05/18 06/05/18 06/05/18 14:15 14:30 14:45 15:00 Pulse 150 151 142 144 B/P (MAP) 106/95 (99) 124/54 (77) Pulse Ox 91 91 92 92 06/05/18 06/05/18 06/05/18 06/05/18 15:15 15:30 15:45 16:00 Pulse 147 142 163 138 Resp 11 7 12 12 B/P (MAP) 108/76 (87) 100/88 (92) Pulse Ox 89 90 85 06/05/18 06/05/18 06/05/18 06/05/18 16:15 16:30 16:31 16:45 Pulse 137 141 146 Resp 14 6 9 B/P (MAP) 114/81 (92) 06/05/18 06/05/18 06/05/18 17:00 17:15 17:30 Pulse 227 228 208 Resp 12 14 21 B/P (MAP) 100/84 (89) 101/83 (89) Pulse Ox 84 83 84 Physical Exam General Appearance: The patient is alert, has no immediate need for airway protection and no current signs of toxicity. Eyes: Pupils equal and round no injection. Respiratory: Chest is non tender, lungs are clear to auscultation. Cardiac: tachycardic, regular rhythm Gastrointestinal: Abdomen is soft and non tender, no masses, bowel sounds normal. Extremities have full range of motion and are non tender. Skin: No rashes or lesions. DIFFERENTIAL DIAGNOSIS: After history and physical exam differential diagnosis was considered for a seizure including but not limited to electrolyte abnormality, medication noncompliance/supratherapeutic, head injury, and breakthrough seizure. Medical Decision Making Data Points Result Diagram: 06/05/18 1620 06/05/18 1620 Laboratory Hematology Test 06/05/18 16:20 Red Blood Count 4.95 M/uL (4.17-5.56) Mean Corpuscular Volume 98.2 fL (80.0-96.0) Mean Corpuscular Hemoglobin 33.1 pg (26.0-33.0) Mean Corpuscular Hemoglobin Concent 33.7 g/dL (32.0-36.0) Red Cell Distribution Width 13.6 % (11.5-14.5) Mean Platelet Volume 8.3 fL (7.2-11.1) Neutrophils (%) (Auto) 70.5 % (39.4-72.5) Lymphocytes (%) (Auto) 19.2 % (17.6-49.6) Monocytes (%) (Auto) 9.8 % (4.1-12.4) Eosinophils (%) (Auto) 0.2 % (0.4-6.7) Basophils (%) (Auto) 0.3 % (0.3-1.4) Nucleated RBC Relative Count (auto) 0.1 /100WBC Neutrophils # (Auto) 3.9 K/uL (2.0-7.4) Lymphocytes # (Auto) 1.1 K/uL (1.3-3.6) Monocytes # (Auto) 0.5 K/uL (0.3-1.0) Eosinophils # (Auto) 0.0 K/uL (0.0-0.5) Basophils # (Auto) 0.0 K/uL (0.0-0.1) Nucleated RBC Absolute Count (auto) 0.00 K/uL Sodium Level 139 mmol/L (137-145) Potassium Level 4.0 mmol/L (3.5-5.0) Chloride Level 105 mmol/L (98-107) Carbon Dioxide Level 32 mmol/L (22-31) Blood Urea Nitrogen 23 mg/dl (7-18) Creatinine 0.60 mg/dl (0.52-1.04) Glomerular Filtration Rate Calc > 60.0 Random Glucose 111 mg/dl (75-110) Calcium Level 9.3 mg/dl (8.4-10.2) Total Bilirubin 0.5 mg/dl (0.2-1.3) Aspartate Amino Transf (AST/SGOT) 28 U/L (0-35) Alanine Aminotransferase (ALT/SGPT) 18 U/L (0-56) Alkaline Phosphatase 62 U/L (0-126) Total Protein 6.9 g/dl (6.3-8.2) Albumin 3.7 g/dl (3.5-5.0) Chemistry Test 06/05/18 16:20 White Blood Count 5.5 k/uL (4.5-11.0) Red Blood Count 4.95 M/uL (4.17-5.56) Hemoglobin 16.4 g/dL (12.0-16.0) Hematocrit 48.6 % (34.0-47.0) Mean Corpuscular Volume 98.2 fL (80.0-96.0) Mean Corpuscular Hemoglobin 33.1 pg (26.0-33.0) Mean Corpuscular Hemoglobin Concent 33.7 g/dL (32.0-36.0) Red Cell Distribution Width 13.6 % (11.5-14.5) Platelet Count 213 K/uL (150-450) Mean Platelet Volume 8.3 fL (7.2-11.1) Neutrophils (%) (Auto) 70.5 % (39.4-72.5) Lymphocytes (%) (Auto) 19.2 % (17.6-49.6) Monocytes (%) (Auto) 9.8 % (4.1-12.4) Eosinophils (%) (Auto) 0.2 % (0.4-6.7) Basophils (%) (Auto) 0.3 % (0.3-1.4) Nucleated RBC Relative Count (auto) 0.1 /100WBC Neutrophils # (Auto) 3.9 K/uL (2.0-7.4) Lymphocytes # (Auto) 1.1 K/uL (1.3-3.6) Monocytes # (Auto) 0.5 K/uL (0.3-1.0) Eosinophils # (Auto) 0.0 K/uL (0.0-0.5) Basophils # (Auto) 0.0 K/uL (0.0-0.1) Nucleated RBC Absolute Count (auto) 0.00 K/uL Glomerular Filtration Rate Calc > 60.0 Calcium Level 9.3 mg/dl (8.4-10.2) Total Bilirubin 0.5 mg/dl (0.2-1.3) Aspartate Amino Transf (AST/SGOT) 28 U/L (0-35) Alanine Aminotransferase (ALT/SGPT) 18 U/L (0-56) Alkaline Phosphatase 62 U/L (0-126) Total Protein 6.9 g/dl (6.3-8.2) Albumin 3.7 g/dl (3.5-5.0) Toxicology Test 06/05/18 16:20 ED Course/Re-evaluation ED Course Well appearing 52-year-old female who appears at her baseline. Increased number of seizures this month per her caregivers. I think this is likely has to do with either the pneumonia that she has itself or secondary to antibiotic use. The pat ient is interactive and pleasant. Her labs are normal, and she does not have a leukocytosis. Given that she already has pneumonia, a chest x-ray is not helpful at this point. She is not tachypneic. She has baseline tachycardia. She was somewhat more tachycardic today, so given 1 L of normal saline. She is eating and drinking well. A Keppra level was sent, but it is a send out lab so she will follow-up with her primary physician. I do not think she needs any changes to her medications or antibiotics at this time, and she can follow-up with her primary care doctor tomorrow. Decision to Disposition Date: Jun 05, 2018 Decision to Disposition Time: 18:44 Depart Departure Latest Vital Signs Vital Signs Date Time Temp Pulse Resp B/P (MAP) Pulse Ox O2 Delivery O2 Flow Rate FiO2 06/05/18 17:30 208 21 101/83 (89) 84 06/05/18 13:40 1.0 06/05/18 13:38 98.1 Nasal Cannula Impression: Primary Impression: Seizure Condition: Improved Disposition: HOME OR SELF-CARE Referrals: DIONI FLETCHER DO (PCP) Patient Instructions: Recurrent Seizures in Adults (ED) Additional Instructions: FOLLOW UP WITH YOUR PRIMARY DOCTOR FOR THE RESULTS OF YOUR KEPPRA LEVEL ODALIS CADE MD Jun 05, 2018 14:03
[2018-06-05 16:39] LABS: PLATELET COUNT, AUTOMATED 213 K/uL (150-450)
[2018-06-05] MEDS ORDERED: NS(*) 0.9% 1000 ML BAG 1,000 ML IV ONE (17:20)
[2018-06-05 18:30] VITALS: BP 99/80
== END 2018-06-05 18:40 | disposition home or self-care (01) ==
LOC: ER 14:17
DX: R56.9 Unspecified convulsions (principal); R00.0 Tachycardia, unspecified
CPT/HCPCS: 80177; 85025; 96360; 99283; J7030; 82040; 82247; 82310; 82374; 82435; 82565; 82947; 84075; 84132; 84155; 84295; 84450; 84460; 84520

== ENCOUNTER → 2018-06-07 | Outpatient (CLI) | payer MEDICARE, MEDICAID ==
--- NOTE | 2018-06-07 16:44 | RADIOLOGY IMAGING REPORT ---
FACILITY: [facility] PATIENT NAME: Glenys Saucedo : 1965 MR: [id number] V: [id number] EXAM DATE: ORDERING PHYSICIAN: DIONI FLETCHER TECHNOLOGIST: Location: [facility] Patient: Glenys Saucedo : 1965 Visit/Account:[id number] Date of Sevice: 06/07/2018 2 VIEWS CHEST INDICATION: Pneumonia COMPARISON: X-ray examination chest May 23, 2018 FINDINGS: There is a rotoscoliotic curvature of the spine. The patient appears also mildly rotated to the left . This accentuates the soft tissue vasculature of the right hilum. The lungs appear clear without f ocal infiltrate or consolidation. No effusion or pneumothorax. Spondylosis is noted in the lower th oracic spine and within the superior aspect of the lumbar spine without evidence of acute bony findin g. IMPRESSION: 1. Clear lungs. No evidence of acute cardiopulmonary finding. Report Dictated By: Fred Mckeon MD at 06/07/2018 4:38 PM Report E-Signed By: Fred Mckeon MD at 06/07/2018 4:40 PM WSN:[email or web address]
== END ==
LOC: RAD 15:59
PROVIDERS: ATTEND Family Medicine
DX: J18.9 Pneumonia, unspecified organism (principal)
CPT/HCPCS: 71046

== ENCOUNTER 2018-07-22 10:10 | Emergency (ER) | payer MEDICARE, MEDICAID ==
--- NOTE | 2018-07-22 10:16 | ER Report ---
History and Physical Time Seen By MD: 10:15 HPI/ROS CHIEF COMPLAINT: Fall HISTORY OF PRESENT ILLNESS: Patient is a 52-year-old female here status post fall yesterday evening when she had a seizure while in the shower. Patient has a known history of seizures. Patient is an [facility] patient and has difficulty communicating verbally. Patient is moving all extremities spontaneously. There is a small hematoma on the apex of the scalp REVIEW OF SYSTEMS: Unable to obtain due to patient's mental status Allergies: Coded Allergies: Penicillins (Verified Allergy, Mild, SWELLING, 07/22/18) 07/16/13- Spoke with patient's mother and clarified allergy to PCN. Reported swelling and hives when given penicillin as an infant. Patient tolerates Imipenem. Lauren Ocampo, PharmD, BCOP ibuprofen (Verified Allergy, Mild, CANNOT TAKE WHILE ON DEPAKOTE, 07/22/18) aspirin (Verified Adverse Reaction, Mild, CANNOT TAKE WHILE ON DEPAKOTE, 07/22/18) naproxen (Verified Adverse Reaction, Mild, CANNOT TAKE WHILE ON DEPAKOTE, 07/22/18) Home Meds Reported Medications Docusate Sodium (SILACE) 50 Mg/5 Ml Liquid, 10 MG PO TID 11/03/17 Ranitidine Hcl (ZANTAC) 150 Mg Tablet, 150 MG PO BID, TAB 11/03/17 Calcium Carbonate/Vitamin D3 (OYSTER SHELL CALCIUM +D TABLET) 1 Each Tablet, 1 EACH PO 11/03/17 Duloxetine HCl (Duloxetine HCl) 60 Mg Capsule. 11/03/17 Methyl Salicylate/Menthol (THERA-GESIC ANALGESIC CREAM) 85 Gm Cream..g., 85 GM TP PRN 04/09/15 Docusate Sodium (SILACE) 60 Mg/15 Ml Syrup, 60 MG PO TID 04/09/15 Skin Cleanser (PERIFRESH) 3,840 Ml Cleanser, 3840 ML TP PRN 04/09/15 Oxygen (OXYGEN) Inha, 3 L INH QPM, L 04/09/15 Oxygen (OXYGEN) Inha, 1 L INH DAILY, L 04/09/15 Calcium Carbonate/Vitamin D3 (OYSTER SHELL CALCIUM + D TAB) 1 Each Tablet, 1 EACH PO BID 04/09/15 Melatonin (MELATONIN) 3 Mg Tablet.er, 1.5 MG PO DAILY 04/09/15 Levothyroxine Sodium (LEVOTHYROXINE SODIUM) 100 Mcg Tablet, 100 MCG PO QDAY 04/09/15 Levetiracetam (LEVETIRACETAM) 1,000 Mg Tablet, 1000 MG PO BID, TAB 04/09/15 Hydrocortisone/Aloe Vera (HYDROCORTISONE 1% OINTMENT) 28 Gm Oint...g., 28 GM TP PRN 04/09/15 Multivit With Calcium,Iron,Min (ESSENTIAL DAILY) 1 Each Tablet, 1 EACH PO DAILY 04/09/15 Divalproex Sodium (DIVALPROEX SODIUM) 125 Mg Cap.sprink, 375 MG PO DAILY, CAP 04/09/15 Divalproex Sodium (DIVALPROEX SODIUM) 125 Mg Cap.sprink, 250 MG PO TID, CAP 04/09/15 Clonazepam (CLONAZEPAM) 0.5 Mg Tablet, 0.5 MG PO TID, #6 TAB 04/09/15 Saline (AYR SALINE NASAL GEL) 14.1 Gm Gel, 14.1 GM NA PRN, GEL 04/09/15 Calcium Carbonate/Mag Hydrox (ANTACID CHEWABLE TABLET) 1 Each Tab.chew, 500 MG PO PRN, TAB.CHEW 04/09/15 Mag Hydrox/Al Hydrox/Simeth (MAALOX MAXIMUM STRENGTH SUSP) 355 Ml Oral.susp, 5 ML PO PRN PRN for GAS/HEARTBURN 07/08/13 Hydrochlorothiazide (HYDROCHLOROTHIAZIDE) 12.5 Mg Capsule, 1 TAB PO QDAY, CAPSULE TAKE ONE CAPSULE BY MOUTH EVERY DAY 07/08/13 Menthol (BIOFREEZE) 118 Ml Gel..ml., 1 GABRIELLE TP PRN for PAIN 07/08/13 Bacitracin (BACITRACIN ZINC) 0.9 Gm Oint, 0.9 GM TP PRN for RASH 07/08/13 Hydrocortisone (ANUSOL-HC) 30 Gm Cream..g., 30 GM RC PRN for HEMORRHOIDS 07/08/13 Loperamide Hcl (ANTI-DIARRHEAL) 2 Mg Capsule, 2 MG PO PRN PRN for DIARRHEA, CAPSULE 2 tabs after 2 loose stools 07/08/13 Magnesium Hydroxide (MILK OF MAGNESIA) 400 Mg/5 Ml Oral.susp, 30 ML PO PRN PRN for CONSTIPATION 04/18/13 Chlorhexidine (CHLORHEXIDINE FLAVOR) 1 Ml Liquid, 18 ML MC QODAY 04/18/13 Aripiprazole (ABILIFY) 5 Mg Tablet, 10 MG PO QHS 03/21/13 Duloxetine Hcl (Cymbalta) 30 Mg Capcr, 30 MG PO DAILY 03/01/12 Calcium Carbonate/Simethicone (Tums Plus Tab Chew Assorted) 1 Tab.chew Tab.chew, 1 TAB.CHEW PO TID, 0 Refills 07/21/09 Hx Smoking: No Smoking Status: Never Smoker Exposure to Second Hand Smoke?: No Hx Substance Use Disorder: No Hx Alcohol Use: No Constitutional Vital Sign - Last 24 Hours 07/22/18 10:28 Pulse 99 Resp 18 B/P (MAP) 101/83 Pulse Ox 86 O2 Delivery Room Air Physical Exam General Appearance: The patient is alert, has no immediate need for airway protection and no signs of toxicity. No acute distress Eyes: Pupils equal and round no pallor or injection. ENT, Mouth: Mucous membranes are moist. Respiratory: There are no retractions, lungs are clear to auscultation. Cardiovascular: Regular rate and rhythm. Gastrointestinal: Abdomen is soft and non tender, no masses, bowel sounds normal. Neurological: No focal neurological deficits elicited on physical exam Skin: Hematoma present on the right apex of the scalp Musculoskeletal: Neck is supple non tender. Extremities are nontender, nonswollen and have full range of motion. DIFFERENTIAL DIAGNOSIS: After history and physical exam differential diagnosis was considered for headache including but not limited to subarachnoid h emorrhage, migraine headache, tension headache and infectious causes such as meningitis, pharyngitis and sinusitis. Medical Decision Making EKG/Imaging Imaging PATIENT NAME: Glenys Saucedo : 1965 MR: [id number] V: [id number] EXAM DATE: ORDERING PHYSICIAN: JAZMÍN SEWELL TECHNOLOGIST: Location: [facility] [place] Patient: Glenys Saucedo : 1965 Visit/Account:[id number] Date of Sevice: 07/22/2018 CT Head without contrast and CT Cervical spine: Indication: Fall Comparison: 02/21/2018 Technique: CT head: Axial CT images were obtained through the brain from the skull base to the vertex without administration of IV contrast. Reformatted coronal and sagittal images were also obtained. Technique: CT cervical spine: Axial CT imaging of the cervical spine was performed. 2-D sagittal and coronal CT reformats were also obtained. One of the following dose optimization techniques was utilized in the performance of this exam: automated exposure control; adjustment of the mA and/or kV according to the patient's size; or use of an iterative reconstruction technique. Specific details can be referenced in the facility's radiology CT exam operational policy. FINDINGS: CT head: No evidence of mass, mass effect, or midline shift. No acute intracranial hemorrhage or acute territorial infarction. Reidentified and stable in appearance is enlargement of the posterior horns of the lateral ventricles. There is a stable area of encephalomalacia and volume loss within the left lateral temporal lobe.. The visualized paranasal sinuses and mastoid air cells are clear. Hyperostosis frontalis is present CT cervical spine: No cervical spine fracture or acute subluxation is identified.. The prevertebral soft tissues appear unremarkable. The vertebral body heights are well maintained. There is moderate multilevel degenerative disc space disease present. Anterior osteophytes are noted. Facet arthropathy is present. IMPRESSION: 1. No acute intracranial abnormality. 2. No acute osseous or acute alignment abnormality of the cervical spine. 3. Stable enlargement of the lateral ventricles and encephalomalacia within the left temporal lobe PATIENT NAME: Glenys Saucedo : 1965 MR: [id number] V: [id number] EXAM DATE: ORDERING PHYSICIAN: JAZMÍN SEWELL TECHNOLOGIST: Location: [facility] [place] Patient: Glenys Saucedo : 1965 Visit/Account:[id number] Date of Sevice: 07/22/2018 CT Head without contrast and CT Cervical spine: Indication: Fall Comparison: 02/21/2018 Technique: CT head: Axial CT images were obtained through the brain from the skull base to the vertex without administration of IV contrast. Reformatted coronal and sagittal images were also obtained. Technique: CT cervical spine: Axial CT imaging of the cervical spine was performed. 2-D sagittal and coronal CT reformats were also obtained. One of the following dose optimization techniques was utilized in the performance of this exam: automated exposure control; adjustment of the mA and/or kV according to the patient's size; or use of an iterative reconstruction technique. Specific details can be referenced in the facility's radiology CT exam operational policy. FINDINGS: CT head: No evidence of mass, mass effect, or midline shift. No acute intracranial hemorrhage or acute territorial infarction. Reidentified and stable in appearance is enlargement of the posterior horns of the lateral ventricles. There is a stable area of encephalomalacia and volume loss within the left lateral temporal lobe.. The visualized paranasal sinuses and mastoid air cells are clear. Hyperostosis frontalis is present CT cervical spine: No cervical spine fracture or acute subluxation is identified.. The prevertebral soft tissues appear unremarkable. The vertebral body heights are well maintained. There is moderate multilevel degenerative disc space disease present. Anterior osteophytes are noted. Facet arthropathy is present. IMPRESSION: 1. No acute intracranial abnormality. 2. No acute osseous or acute alignment abnormality of the cervical spine. 3. Stable enlargement of the lateral ventricles and encephalomalacia within the left temporal lobe ED Course/Re-evaluation ED Course Patient is a 52-year-old female here status post fall yesterday. CT imaging of the head and C-spine showed no acute fractures or intracranial bleeds. Patient did not require sedation in order to obtain imaging. Patient was stable at time of discharge. Return precautions provided. Decision to Disposition Date: Jul 22, 2018 Decision to Disposition Time: 11:31 Depart Departure Latest Vital Signs Vital Signs Date Time Temp Pulse Resp B/P (MAP) Pulse Ox O2 Delivery O2 Flow Rate FiO2 07/22/18 10:28 99 18 101/83 86 Room Air Impression: Primary Impression: Scalp contusion Condition: Improved Disposition: HOME OR SELF-CARE Referrals: DIONI FLETCHER DO (PCP) Patient Instructions: Contusion in Adults (ED) Additional Instructions: No acute fractures were identified on CT imaging of the head and neck. Please follow-up with ear primary care provider as needed. Please return promptly if you develop change in mental status, nausea, vomiting JAZMÍN SEWELL DO Jul 22, 2018 10:16
[2018-07-22] MEDS ORDERED: KETAMINE HCL 500 MG/5 ML VIAL IM ONE (10:25)
[2018-07-22 10:28] VITALS: BP 101/83
--- NOTE | 2018-07-22 11:24 | RADIOLOGY IMAGING REPORT ---
FACILITY: [facility] - [place] PATIENT NAME: Glenys Saucedo : 1965 MR: [id number] V: [id number] EXAM DATE: ORDERING PHYSICIAN: JAZMÍN SEWELL TECHNOLOGIST: Location: Patient: Glenys Saucedo : 1965 Visit/Account:[id number] Date of Sevice: 07/22/2018 CT Head without contrast and CT Cervical spine: Indication: Fall Comparison: 02/21/2018 Technique: CT head: Axial CT images were obtained through the brain from the skull base to the verte x without administration of IV contrast. Reformatted coronal and sagittal images were also obtained. Technique: CT cervical spine: Axial CT imaging of the cervical spine was performed. 2-D sagittal and coronal CT reformats were also obtained. One of the following dose optimization techniques was utilized in the performance of this exam: autom ated exposure control; adjustment of the mA and/or kV according to the patient's size; or use of an i terative reconstruction technique. Specific details can be referenced in the facility's radiology CT exam operational policy. FINDINGS: CT head: No evidence of mass, mass effect, or midline shift. No acute intracranial hemorrhage or acute territorial infarction. Reidentified and stable in appearance is enlargement of the posterior horns of the lateral ventricles . There is a stable area of encephalomalacia and volume loss within the left lateral temporal lobe.. The visualized paranasal sinuses and mastoid air cells are clear. Hyperostosis frontalis is present CT cervical spine: No cervical spine fracture or acute subluxation is identified.. The prevertebral soft tissues appear unremarkable. The vertebral body heights are well maintained. There is moderate multilevel degenerative disc space disease present. Anterior osteophytes are noted. Facet arthropathy is present. IMPRESSION: 1. No acute intracranial abnormality. 2. No acute osseous or acute alignment abnormality of the cervical spine. 3. Stable enlargement of the lateral ventricles and encephalomalacia within the left temporal lobe Report Dictated By: Kyaw Byrd at 07/22/2018 11:12 AM Report E-Signed By: Kyaw Byrd at 07/22/2018 11:19 AM WSN:[id number]
--- NOTE | 2018-07-22 11:24 | RADIOLOGY IMAGING REPORT ---
FACILITY: [facility] - [place] PATIENT NAME: Glenys Saucedo : 1965 MR: [id number] V: [id number] EXAM DATE: ORDERING PHYSICIAN: JAZMÍN SEWELL TECHNOLOGIST: Location: [facility] [place] Patient: Glenys Saucedo : 1965 Visit/Account:[id number] Date of Sevice: 07/22/2018 CT Head without contrast and CT Cervical spine: Indication: Fall Comparison: 02/21/2018 Technique: CT head: Axial CT images were obtained through the brain from the skull base to the verte x without administration of IV contrast. Reformatted coronal and sagittal images were also obtained. Technique: CT cervical spine: Axial CT imaging of the cervical spine was performed. 2-D sagittal and coronal CT reformats were also obtained. One of the following dose optimization techniques was utilized in the performance of this exam: autom ated exposure control; adjustment of the mA and/or kV according to the patient's size; or use of an i terative reconstruction technique. Specific details can be referenced in the facility's radiology CT exam operational policy. FINDINGS: CT head: No evidence of mass, mass effect, or midline shift. No acute intracranial hemorrhage or acute territorial infarction. Reidentified and stable in appearance is enlargement of the posterior horns of the lateral ventricles . There is a stable area of encephalomalacia and volume loss within the left lateral temporal lobe.. The visualized paranasal sinuses and mastoid air cells are clear. Hyperostosis frontalis is present CT cervical spine: No cervical spine fracture or acute subluxation is identified.. The prevertebral soft tissues appear unremarkable. The vertebral body heights are well maintained. There is moderate multilevel degenerative disc space disease present. Anterior osteophytes are noted. Facet arthropathy is present. IMPRESSION: 1. No acute intracranial abnormality. 2. No acute osseous or acute alignment abnormality of the cervical spine. 3. Stable enlargement of the lateral ventricles and encephalomalacia within the left temporal lobe Report Dictated By: Kyaw Byrd at 07/22/2018 11:12 AM Report E-Signed By: Kyaw Byrd at 07/22/2018 11:19 AM WSN:[id number]
== END 2018-07-22 11:41 | disposition home or self-care (01) ==
LOC: ER 10:19
DX: S00.03XA Contusion of scalp, initial encounter (principal)
CPT/HCPCS: 70450; 72125; 99284

== ENCOUNTER → 2018-09-20 | Outpatient (REF) | payer MEDICARE, MEDICAID ==
[2018-09-20 13:13] LABS: PLATELET COUNT, AUTOMATED 201 K/uL (150-450)
== END ==
LOC: ZZSENDIN 12:33
PROVIDERS: ATTEND Family Medicine
DX: E03.4 Atrophy of thyroid (acquired) (principal)
CPT/HCPCS: 80177; 81001; 81025; 82040; 82247; 82310; 82374; 82435; 82565; 82947; 84075; 84132; 84155; 84295; 84443; 84450; 84460; 84520; 85025

== ENCOUNTER → 2018-09-21 | Outpatient (CLI) | payer MEDICARE, MEDICAID ==
[~2018-09-21] MED LIST changes: +DIVA250T33 PO
--- NOTE | 2018-09-21 14:20 | RADIOLOGY IMAGING REPORT ---
FACILITY: PATIENT NAME: Glenys Saucedo : 1965 MR: [id number] V: [id number] EXAM DATE: ORDERING PHYSICIAN: HAZEL GARCIA TECHNOLOGIST: Location: [facility] Patient: Glenys Saucedo : 1965 Visit/Account:[id number] Date of Sevice: 09/21/[address] scan without contrast COMPARISONS: Head CT scan without contrast dated July 22, 2018 ADDITIONAL PERTINENT HISTORY: Seizure disorder with recent fall out of bed. TECHNIQUE: Multiple axial images were obtained from the skull base to the vertex without IV contrast . One of the following dose optimization techniques was utilized in the performance of this exam: Aut omated exposure control; adjustment of the mA and/or kV according to the patient's size; or use of an iterative reconstruction technique. Specific details can be referenced in the facility's radiology CT exam operational policy. 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 No intraparenchymal hemorrhage or mass effect. Extra-axial spaces: Negative Intracranial vasculature: Cavernous internal carotid artery calcifications. Otherwise negative Osseous structures: Thickening of the calvarium which can be seen in patients on anti-epileptic medi cations. Paranasal sinuses and mastoid air cells: Negative Surrounding soft tissues and orbits: Mild soft tissue hematoma involving the left frontal scalp soft tissues. IMPRESSION: 1. Congenital abnormalities intracranially as detailed above. 2. 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 3. Left frontal scalp soft tissue hematoma. 4. No acute intracranial traumatic injury. Report Dictated By: Hazel Aviles MD at 09/21/2018 1:41 PM Report E-Signed By: Hazel Aviles MD at 09/21/2018 1:48 PM WSN:[id number]
--- NOTE | 2018-09-21 15:22 | RADIOLOGY IMAGING REPORT ---
FACILITY: [facility] - [place] PATIENT NAME: Glenys Saucedo : 1965 MR: [id number] V: [id number] EXAM DATE: ORDERING PHYSICIAN: HAZEL GARCIA TECHNOLOGIST: Location: [facility] Patient: Glenys Saucedo : 1965 Visit/Account:[id number] Date of Sevice: 09/21/2018 CT neck without contrast Comparison: None Additional pertinent history: Fall out of bed 2 days ago with bruising about the left eye and forehe ad. TECHNIQUE: Multiple axial images were obtained from the mid portion of the brain through the superio r mediastinum without IV contrast. Coronal and sagittal reformatted images were obtained off the ax ial source data. One of the following dose optimization techniques was utilized in the performance o f this exam: Automated exposure control; adjustment of the mA and/or kV according to the patient's si ze; or use of an iterative reconstruction technique. Specific details can be referenced in the [facility]'s radiology CT exam operational policy. FINDINGS: Visualized portions of the brain parenchyma:Negative Parotid glands/submandibular glands/thyroid: Tiny focal benign-appearing calcification within the le ft lobe of the thyroid. Otherwise negative Orbits: Negative Paranasal sinuses: Moderate mucosal thickening involving the right maxillary sinus. Parapharyngeal spaces: Negative Nasopharynx/oropharynx/hypopharynx: Negative Tonsillar pillars: Negative Oral tongue/tongue base: Negative True and false cords: Negative Lymph node assessment:Negative Surrounding soft tissues: Negative Vasculature: Negative Lung apices: Negative Osseous structures: Spondylitic change involving the cervical spine without evidence of acute bony ab normality. IMPRESSION: 1. No acute process involving the neck. Report Dictated By: Hazel Aviles MD at 09/21/2018 3:15 PM Report E-Signed By: Hazel Aviles MD at 09/21/2018 3:18 PM WSN:[id number]
== END ==
LOC: CT 07:13
PROVIDERS: ATTEND Family Medicine
DX: G40.89 Other seizures (principal)
CPT/HCPCS: 70450; 70490

== ENCOUNTER 2018-09-25 10:25 | Emergency (ER) | payer MEDICARE, MEDICAID ==
[~2018-09-25 10:25] MED LIST changes: -DIVA250T33 PO
--- NOTE | 2018-09-25 10:32 | ER Report ---
History and Physical Time Seen By MD: 10:31 HPI/ROS CHIEF COMPLAINT: Altered mental status, tremors HISTORY OF PRESENT ILLNESS: Patient is a 52-year-old female here with complaints of altered mental status, history of seizures last of which was yesterday with an assisted fall, a fall last week with a subsequent negative CT of the head and C-spine. Patient is a member of the [employer] and is usually more verbal, able to ambulate without assistance whereas today she became confused, needed assistance to ambulate, has been shaky with a recent evaluation on Tuesday by neurology. This morning, staff at the home report that she was more altered than normal, more shaky prompting evaluation. Patient does have ecchymosis around the left eye which was from prior fall. REVIEW OF SYSTEMS: Unable to obtain due to patient's mental status Allergies: Coded Allergies: Penicillins (Verified Allergy, Mild, SWELLING, 07/22/18) 07/16/13- Spoke with patient's mother and clarified allergy to PCN. Reported swelling and hives when given penicillin as an infant. Patient tolerates Imipenem. Lauren Ocampo, PharmD, BCOP ibuprofen (Verified Allergy, Mild, CANNOT TAKE WHILE ON DEPAKOTE, 07/22/18) aspirin (Verified Adverse Reaction, Mild, CANNOT TAKE WHILE ON DEPAKOTE, 07/22/18) naproxen (Verified Adverse Reaction, Mild, CANNOT TAKE WHILE ON DEPAKOTE, 07/22/18) Home Meds Reported Medications Divalproex Sodium (DIVALPROEX SODIUM) 250 Mg Tablet.dr, 250 MG PO AM, TAB 09/25/18 Divalproex Sodium (DIVALPROEX SODIUM) 250 Mg Tablet.dr, 375 MG PO BID, TAB 09/25/18 Ranitidine Hcl (ZANTAC) 150 Mg Tablet, 150 MG PO BID, TAB 11/03/17 Calcium Carbonate/Vitamin D3 (OYSTER SHELL CALCIUM +D TABLET) 1 Each Tablet, 1 EACH PO 11/03/17 Duloxetine HCl (Duloxetine HCl) 60 Mg Capsule.dr, DAILY 11/03/17 Methyl Salicylate/Menthol (THERA-GESIC ANALGESIC CREAM) 85 Gm Cream..g., 85 GM TP PRN 04/09/15 Skin Cleanser (PERIFRESH) 3,840 Ml Cleanser, 3840 ML TP PRN 15 Oxygen (OXYGEN) Inha, 3 L INH QPM, L 04/09/15 Oxygen (OXYGEN) Inha, 1 L INH DAILY, L 04/09/15 Melatonin (MELATONIN) 3 Mg Tablet.er, 1.5 MG PO DAILY 04/09/15 Levothyroxine Sodium (LEVOTHYROXINE SODIUM) 100 Mcg Tablet, 100 MCG PO QDAY 04/09/15 Levetiracetam (LEVETIRACETAM) 1,000 Mg Tablet, 1000 MG PO BID, TAB 04/09/15 Hydrocortisone/Aloe Vera (HYDROCORTISONE 1% OINTMENT) 28 Gm Oint...g., 28 GM TP PRN 04/09/15 Multivit With Calcium,Iron,Min (ESSENTIAL DAILY) 1 Each Tablet, 1 EACH PO DAILY 04/09/15 Clonazepam (CLONAZEPAM) 0.5 Mg Tablet, 0.5 MG PO TID, #6 TAB 04/09/15 Saline (AYR SALINE NASAL GEL) 14.1 Gm Gel, 14.1 GM NA PRN, GEL 04/09/15 Mag Hydrox/Al Hydrox/Simeth (MAALOX MAXIMUM STRENGTH SUSP) 355 Ml Oral.susp, 5 ML PO PRN PRN for GAS/HEARTBURN 07/08/13 Hydrochlorothiazide (HYDROCHLOROTHIAZIDE) 12.5 Mg Capsule, 1 TAB PO QDAY, CAPSULE TAKE ONE CAPSULE BY MOUTH EVERY DAY 07/08/13 Menthol (BIOFREEZE) 118 Ml Gel..ml., 1 GABRIELLE TP PRN for PAIN 07/08/13 Bacitracin (BACITRACIN ZINC) 0.9 Gm Oint, 0.9 GM TP PRN for RASH 07/08/13 Hydrocortisone (ANUSOL-HC) 30 Gm Cream..g., 30 GM RC PRN for HEMORRHOIDS 07/08/13 Loperamide Hcl (ANTI-DIARRHEAL) 2 Mg Capsule, 2 MG PO PRN PRN for DIARRHEA, CAPSULE 2 tabs after 2 loose stools 07/08/13 Magnesium Hydroxide (MILK OF MAGNESIA) 400 Mg/5 Ml Oral.susp, 30 ML PO PRN PRN for CONSTIPATION 04/18/13 Chlorhexidine (CHLORHEXIDINE FLAVOR) 1 Ml Liquid, 18 ML MC QODAY 04/18/13 Aripiprazole (ABILIFY) 5 Mg Tablet, 10 MG PO QHS 03/21/13 Duloxetine Hcl (Cymbalta) 30 Mg Capcr, 30 MG PO DAILY 03/01/12 Calcium Carbonate/Simethicone (Tums Plus Tab Chew Assorted) 1 Tab.chew Tab.chew, 1 TAB.CHEW PO TID, 0 Refills 07/21/09 Discontinued Reported Medications Docusate Sodium (SILACE) 50 Mg/5 Ml Liquid, 10 MG PO TID 11/03/17 Docusate Sodium (SILACE) 60 Mg/15 Ml Syrup, 60 MG PO TID 04/09/15 Calcium Carbonate/Vitamin D3 (OYSTER SHELL CALCIUM + D TAB) 1 Each Tablet, 1 EACH PO BID 04/09/15 Divalproex Sodium (DIVALPROEX SODIUM) 125 Mg Cap.sprink, 375 MG PO DAILY, CAP 04/09/15 Divalproex Sodium (DIVALPROEX SODIUM) 125 Mg Cap.sprink, 250 MG PO TID, CAP 04/09/15 Calcium Carbonate/Mag Hydrox (ANTACID CHEWABLE TABLET) 1 Each Tab.chew, 500 MG PO PRN, TAB.CHEW 04/09/15 Hx Smoking: No Smoking Status: Never Smoker Exposure to Second Hand Smoke?: No Hx Substance Use Disorder: No Hx Alcohol Use: No Constitutional Vital Sign - Last 24 Hours 09/25/18 09/25/18 09/25/18 09/25/18 10:35 10:36 10:55 11:25 Temp 97.8 Pulse 103 105 113 Resp 18 B/P (MAP) 121/83 (96) 121/83 Pulse Ox 97 95 95 O2 Delivery Oxy Mask 09/25/18 09/25/18 12:23 12:30 Pulse 125 B/P (MAP) 142/122 (129) 97/77 (84) Pulse Ox 95 Physical Exam General Appearance: Moving all extremities, shaky, nonverbal at time of evaluation Eyes: old left periorbital ecchymosis ENT, Mouth: Mucous membranes are moist. Respiratory: There are no retractions, lungs are clear to auscultation. Cardiovascular: Regular rate and rhythm. Gastrointestinal: Abdomen is soft and non tender, no masses, bowel sounds normal. Neurological: Moving all extremities, tremulous Skin: Warm and dry, no rashes. Musculoskeletal: Neck is supple non tender. Extremities are nontender, nonswollen and have full range of motion. DIFFERENTIAL DIAGNOSIS: After history and physical exam differential diagnosis was considered for electrolyte abnormality, seizure, dehydration, infectious etiology, concussion, intracranial bleed Medical Decision Making Data Points Result Diagram: 09/25/18 1119 09/25/18 1119 Laboratory Hematology Test 09/25/18 11:19 09/25/18 12:22 Red Blood Count 4.27 M/uL (4.17-5.56) Mean Corpuscular Volume 100.9 fL (80.0-96.0) Mean Corpuscular Hemoglobin 33.1 pg (26.0-33.0) Mean Corpuscular Hemoglobin Concent 32.8 g/dL (32.0-36.0) Red Cell Distribution Width 13.6 % (11.5-14.5) Mean Platelet Volume 8.2 fL (7.2-11.1) Neutrophils (%) (Auto) 43.4 % (39.4-72.5) Lymphocytes (%) (Auto) 41.0 % (17.6-49.6) Monocytes (%) (Auto) 14.6 % (4.1-12.4) Eosinophils (%) (Auto) 0.5 % (0.4-6.7) Basophils (%) (Auto) 0.5 % (0.3-1.4) Nucleated RBC Relative Count (auto) 0.0 /100WBC Neutrophils # (Auto) 2.4 K/uL (2.0-7.4) Lymphocytes # (Auto) 2.3 K/uL (1.3-3.6) Monocytes # (Auto) 0.8 K/uL (0.3-1.0) Eosinophils # (Auto) 0.0 K/uL (0.0-0.5) Basophils # (Auto) 0.0 K/uL (0.0-0.1) Nucleated RBC Absolute Count (auto) 0.00 K/uL Carboxyhemoglobin 1.0 % (< 5.0) Sodium Level 143 mmol/L (137-145) Potassium Level 3.9 mmol/L (3.5-5.0) Chloride Level 100 mmol/L (98-107) Carbon Dioxide Level 39 mmol/L (22-31) Blood Urea Nitrogen 19 mg/dl (7-18) Creatinine 0.80 mg/dl (0.52-1.04) Glomerular Filtration Rate Calc > 60.0 Random Glucose 108 mg/dl (75-110) Lactate 1.5 mmol/L (0.7-2.1) Calcium Level 10.1 mg/dl (8.4-10.2) Phosphorus Level 2.3 mg/dl (2.5-4.5) Magnesium Level 1.8 mg/dl (1.7-2.2) Total Bilirubin 0.2 mg/dl (0.2-1.3) Aspartate Amino Transf (AST/SGOT) 19 U/L (0-35) Alanine Aminotransferase (ALT/SGPT) 19 U/L (0-56) Alkaline Phosphatase 69 U/L (0-126) Ammonia < 9 UMOL/L (9-33) Total Creatine Kinase 47 U/L (30-135) Troponin I < 0.012 ng/ml Total Protein 6.6 g/dl (6.3-8.2) Albumin 3.5 g/dl (3.5-5.0) Thyroid Stimulating Hormone (TSH) 0.75 uIU/ml (0.46-4.68) Urine Color Yellow Urine Clarity Clear Urine pH 7.0 pH (4.8-9.5) Urine Specific [address] 1.035 Urine Protein Negative mg/dL (NEGATIVE) Urine Glucose (UA) Negative mg/dL (NEGATIVE) Urine Ketones Negative mg/dL (NEGATIVE) Urine Blood Negative (NEGATIVE) Urine Nitrite Negative (NEGATIVE) Urine Bilirubin Negative (NEGATIVE) Urine Urobilinogen Negative mg/dL (0.2-1.9) Urine Leukocyte Esterase Negative (NEGATIVE) Urine RBC <1 /HPF (0-2/HPF) Urine WBC <1 /HPF (0-5/HPF) Urine Squamous Epithelial Cells None /LPF (NONE-FEW) Urine Bacteria Negative /HPF (NONE-FEW) Urine Mucus Few /HPF (NONE-FEW) Chemistry Test 09/25/18 11:19 09/25/18 12:22 White Blood Count 5.6 k/uL (4.5-11.0) Red Blood Count 4.27 M/uL (4.17-5.56) Hemoglobin 14.2 g/dL (12.0-16.0) Hematocrit 43.1 % (34.0-47.0) Mean Corpuscular Volume 100.9 fL (80.0-96.0) Mean Corpuscular Hemoglobin 33.1 pg (26.0-33.0) Mean Corpuscular Hemoglobin Concent 32.8 g/dL (32.0-36.0) Red Cell Distribution Width 13.6 % (11.5-14.5) Platelet Count 196 K/uL (150-450) Mean Platelet Volume 8.2 fL (7.2-11.1) Neutrophils (%) (Auto) 43.4 % (39.4-72.5) Lymphocytes (%) (Auto) 41.0 % (17.6-49.6) Monocytes (%) (Auto) 14.6 % (4.1-12.4) Eosinophils (%) (Auto) 0.5 % (0.4-6.7) Basophils (%) (Auto) 0.5 % (0.3-1.4) Nucleated RBC Relative Count (auto) 0.0 /100WBC Neutrophils # (Auto) 2.4 K/uL (2.0-7.4) Lymphocytes # (Auto) 2.3 K/uL (1.3-3.6) Monocytes # (Auto) 0.8 K/uL (0.3-1.0) Eosinophils # (Auto) 0.0 K/uL (0.0-0.5) Basophils # (Auto) 0.0 K/uL (0.0-0.1) Nucleated RBC Absolute Count (auto) 0.00 K/uL Carboxyhemoglobin 1.0 % (< 5.0) Glomerular Filtration Rate Calc > 60.0 Lactate 1.5 mmol/L (0.7-2.1) Calcium Level 10.1 mg/dl (8.4-10.2) Phosphorus Level 2.3 mg/dl (2.5-4.5) Magnesium Level 1.8 mg/dl (1.7-2.2) Total Bilirubin 0.2 mg/dl (0.2-1.3) Aspartate Amino Transf (AST/SGOT) 19 U/L (0-35) Alanine Aminotransferase (ALT/SGPT) 19 U/L (0-56) Alkaline Phosphatase 69 U/L (0-126) Ammonia < 9 UMOL/L (9-33) Total Creatine Kinase 47 U/L (30-135) Troponin I < 0.012 ng/ml Total Protein 6.6 g/dl (6.3-8.2) Albumin 3.5 g/dl (3.5-5.0) Thyroid Stimulating Hormone (TSH) 0.75 uIU/ml (0.46-4.68) Urine Color Yellow Urine Clarity Clear Urine pH 7.0 pH (4.8-9.5) Urine Specific [address] 1.035 Urine Protein Negative mg/dL (NEGATIVE) Urine Glucose (UA) Negative mg/dL (NEGATIVE) Urine Ketones Negative mg/dL (NEGATIVE) Urine Blood Negative (NEGATIVE) Urine Nitrite Negative (NEGATIVE) Urine Bilirubin Negative (NEGATIVE) Urine Urobilinogen Negative mg/dL (0.2-1.9) Urine Leukocyte Esterase Negative (NEGATIVE) Urine RBC <1 /HPF (0-2/HPF) Urine WBC <1 /HPF (0-5/HPF) Urine Squamous Epithelial Cells None /LPF (NONE-FEW) Urine Bacteria Negative /HPF (NONE-FEW) Urine Mucus Few /HPF (NONE-FEW) Urinalysis Test 09/25/18 12:22 Urine Color Yellow Urine Clarity Clear Urine pH 7.0 pH (4.8-9.5) Urine Specific [address] 1.035 Urine Protein Negative mg/dL (NEGATIVE) Urine Glucose (UA) Negative mg/dL (NEGATIVE) Urine Ketones Negative mg/dL (NEGATIVE) Urine Blood Negative (NEGATIVE) Urine Nitrite Negative (NEGATIVE) Urine Bilirubin Negative (NEGATIVE) Urine Urobilinogen Negative mg/dL (0.2-1.9) Urine Leukocyte Esterase Negative (NEGATIVE) Urine RBC <1 /HPF (0-2/HPF) Urine WBC <1 /HPF (0-5/HPF) Urine Squamous Epithelial Cells None /LPF (NONE-FEW) Urine Bacteria Negative /HPF (NONE-FEW) Urine Mucus Few /HPF (NONE-FEW) EKG/Imaging EKG Interpretation PATIENT NAME: CAROLE SAUCEDO : [id number] MR: [id number] V: [id number] EXAM DATE: ORDERING PHYSICIAN: JAZMÍN SEWELL TECHNOLOGIST: GRICEL Test Reason : AMS Blood Pressure : / mmHG Vent. Rate : 096 BPM Atrial Rate : 441 BPM P-R Int : 000 ms QRS Dur : 070 ms QT Int : 286 ms P-R-T Axes : 045 062 032 degrees QTc Int : [address] and T wave abnormality, consider inferolateral ischemia or digitalis effect Abnormal ECG When compared with ECG of 01-APR-2013 18:13, Atrial fibrillation has replaced Sinus rhythm T wave inversion now evident in Anterolateral leads Referred By: DONATO Confirmed By: Imaging PATIENT NAME: Carole Saucedo : 1965 MR: [id number] V: [id number] EXAM DATE: ORDERING PHYSICIAN: JAZMÍN SEWELL TECHNOLOGIST: Location: [facility] [place] Patient: Carole Saucedo : 1965 Visit/Account:[id number] Date of Sevice: 09/25/2018 Study: CT VERTEBRA CERVICAL (NON CON) Indication: AMS/Fall COMPARISON STUDIES: none TECHNIQUE: Axial images were obtained from the skull base through the upper thoracic spine without intravenous contrast. Coronal and sagittal reformatted images were obtained from the axial source data. One of the following dose optimization techniques was utilized in the performance of this exam: Automated exposure control; adjustment of the mA and/ or kV according to the patient's size; or use of an iterative reconstruction technique. Specific details can be referenced in the facility's radiology CT exam operational policy. FINDINGS: Pre-vertebral soft tissues: Negative Alignment: negative Vertebral bodies: Negative for acute bony abnormality. There is moderate degenerative disease present. This is unchanged. Posterior elements: Negative for acute bony abnormality. There is moderate degenerative disease. This is unchanged. Disc Spaces: Negative Visualized soft tissues anterior neck: Negative Visualized lung / mediastinum: Negative IMPRESSION: Negative for acute fracture or spondylolisthesis. ED Course/Re-evaluation ED Course Patient is a 52-year-old female here with complaints of change in mental status from the arc. Patient was seen by neurology on Tuesday and had also been seen after a fall last week with CT imaging, neurology had altered patient's medications. Today staff reported that the patient had change in mental status with a recurrent seizure yesterday prompting evaluation. CT imaging of the head, C-spine, chest and pelvis were completed due to reports of patient intermitten tly complaining of pain. CT imaging showed no acute findings, see radiology report for full details. CBC was unremarkable with no leukocytosis, CMP was completed and was found to be unremarkable with no acute electrolyte abnormalities. EKG showed normal sinus rhythm without ischemic findings or arrh ythmias. Patient was given bolus of normal saline for hydration.UA unremarkable. I updated patient's caregiver with reports. VS stable. Recommend close PCP follow-up, recommend close follow-up with neurology. Return precautions were provided. Decision to Disposition Date: September 25, 2018 Decision to Disposition Time: 13:54 Depart Departure Latest Vital Signs Vital Signs Date Time Temp Pulse Resp B/P (MAP) Pulse Ox O2 Delivery O2 Flow Rate FiO2 09/25/18 12:30 125 97/77 (84) 95 09/25/18 10:36 97.8 18 Oxy Mask Impression: Primary Impression: Altered mental status Condition: Improved Disposition: HOME OR SELF-CARE Referrals: DIONI FLETCHER DO (PCP) Patient Instructions: Altered Mental Status (ED) Additional Instructions: Please drink plenty of water. Please follow-up with her primary care provider in the next 24-48 hours. Please follow-up with neurology as scheduled. Please return promptly if you develop fevers, have recurrent falls, more confusion than baseline. JAZMÍN SEWELL DO September 25, 2018 10:32
[2018-09-25] MEDS ORDERED: DIVA250T33 PO ×2 (10:51→11:34)
[2018-09-25] MEDS ORDERED: NS(*) 0.9% 1000 ML BAG 1,000 ML IV ONE (10:51)
[2018-09-25] MEDS ORDERED: IOPAMIDOL 76% 100 ML INFUS BTL 100 ML ONE (11:29)
[2018-09-25 11:38] LABS: PLATELET COUNT, AUTOMATED 196 K/uL (150-450)
--- NOTE | 2018-09-25 11:43 | EKG ---
FACILITY: [facility] PATIENT NAME: CAROLE CORRAL : [id number] MR: [id number] V: [id number] EXAM DATE: ORDERING PHYSICIAN: JAZMÍN SEWELL TECHNOLOGIST: GRICEL Test Reason : AMS Blood Pressure : / mmHG Vent. Rate : 096 BPM Atrial Rate : 441 BPM P-R Int : 000 ms QRS Dur : 070 ms QT Int : 286 ms P-R-T Axes : 045 062 032 degrees QTc Int : [address] and T wave abnormality, consider inferolateral ischemia or digitalis effect Abnormal ECG When compared with ECG of 01-APR-2013 18:13, Atrial fibrillation has replaced Sinus rhythm T wave inversion now evident in Anterolateral leads Confirmed by FABIANO GOEL ([id number]) on 09/25/2018 7:05:23 PM Referred By: DONATO Confirmed By:FABIANO GOEL
[2018-09-25 12:30] VITALS: BP 97/77
--- NOTE | 2018-09-25 13:20 | RADIOLOGY IMAGING REPORT ---
FAC[place] [facility] [place] NAME: Glenys Saucedo : 1965 MR: [id number] V: [id number] EXAM DATE: ORDERING PHYSICIAN: JAZMÍN SEWELL TECHNOLOGIST: Location: [facility] - [place] Patient: Glenys Saucedo : 1965 Visit/Account:[id number] Date of Sevice: 09/25/2018 Study: CT scan of the brain without intravenous contrast. Indication: Altered mental status, fall Comparison study: September 21, 2018 Technique: Multiple axial images were obtained through the brain without the use of intravenous contr ast. One of the following dose optimization techniques was utilized in the performance of this exam: Autom ated exposure control; adjustment of the mA and/or kV according to the patient's size; or use of an i terative reconstruction technique. Specific details can be referenced in the facility's radiology C T exam operational policy. The examination demonstrates the presence of prominence of the atria and occipital horns of the later al ventricles bilaterally. This is unchanged. 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 There is mild atrophy present. There is no evidence of disruption of the peripheral johnson-white junction outside of the posterior lef t watershed region.. There is hyperostosis frontalis interna present. This is unchanged. IMPRESSION: No acute intracranial abnormality. There is no significant change from the previous study . Report Dictated By: Kenny Lemon at 09/25/2018 1:12 PM Report E-Signed By: Kenny Lemon at 09/25/2018 1:15 PM WSN:[id number]
--- NOTE | 2018-09-25 13:22 | RADIOLOGY IMAGING REPORT ---
FACILITY: [facility] - [place] PATIENT NAME: Glenys Saucedo : 1965 MR: [id number] V: [id number] EXAM DATE: ORDERING PHYSICIAN: JAZMÍN SEWELL TECHNOLOGIST: Location: Patient: Glenys Saucedo : 1965 Visit/Account:[id number] Date of Sevice: 09/25/2018 Study: CT VERTEBRA CERVICAL (NON CON) Indication: AMS/Fall COMPARISON STUDIES: none TECHNIQUE: Axial images were obtained from the skull base through the upper thoracic spine without i ntravenous contrast. Coronal and sagittal reformatted images were obtained from the axial source data . One of the following dose optimization techniques was utilized in the performance of this exam: Autom ated exposure control; adjustment of the mA and/or kV according to the patient's size; or use of an i terative reconstruction technique. Specific details can be referenced in the facility's radiology C T exam operational policy. FINDINGS: Pre-vertebral soft tissues: Negative Alignment: negative Vertebral bodies: Negative for acute bony abnormality. There is moderate degenerative disease present . This is unchanged. Posterior elements: Negative for acute bony abnormality. There is moderate degenerative disease. This is unchanged. Disc Spaces: Negative Visualized soft tissues anterior neck: Negative Visualized lung / mediastinum: Negative IMPRESSION: Negative for acute fracture or spondylolisthesis. Report Dictated By: Kenny Lemon at 09/25/2018 1:15 PM Report E-Signed By: Kenny Lemon at 09/25/2018 1:17 PM WSN:[id number]
--- NOTE | 2018-09-25 13:27 | RADIOLOGY IMAGING REPORT ---
FACILITY: [facility] - [place] PATIENT NAME: Glenys Saucedo : 1965 MR: [id number] V: [id number] EXAM DATE: ORDERING PHYSICIAN: JAZMÍN SEWELL TECHNOLOGIST: Location: [facility] - [place] Patient: Glenys Saucedo : 1965 Visit/Account:[id number] Date of Sevice: 09/25/2018 Study: CT scan of the chest abdomen and pelvis with intravenous contrast Indication: Trauma Comparison study: None Contrast used: 80 mL Isovue-370 Technique: Multiple axial images were obtained through the chest abdomen and pelvis following intrave nous administration of iodinated contrast. Coronal and sagittal two-dimensional reconstructions were made from the original data set. One of the following dose optimization techniques was utilized in the performance of this exam: Autom ated exposure control; adjustment of the mA and/or kV according to the patient's size; or use of an i terative reconstruction technique. Specific details can be referenced in the facility's radiology C T exam operational policy. Findings: Mediastinum: Unremarkable Lung parenchyma: Unremarkable Liver: Unremarkable Spleen: Unremarkable Gallbladder: Unremarkable Stomach: Unremarkable Small bowel:The small bowel is unremarkable in appearance. Large bowel: The large bowel is unremarkable in appearance. A normal appendix is visualized. Pancreas: Unremarkable Adrenal glands: Unremarkable Kidneys: Unremarkable Retroperitoneum: Unremarkable Pelvis: Unremarkable Bony structures: There are T9 and T3 compression fractures present. These were present on a previous study from 2013. There is no evidence of acute compression fracture. IMPRESSION: No evidence of traumatic injury of the chest abdomen or pelvis. Report Dictated By: Kenny Lemon at 09/25/2018 1:17 PM Report E-Signed By: Kenny Lemon at 09/25/2018 1:23 PM WSN:[id number]
== END 2018-09-25 14:11 | disposition home or self-care (01) ==
LOC: ER 11:26
DX: R41.82 Altered mental status, unspecified (principal); I48.91 Unspecified atrial fibrillation; R94.31 Abnormal electrocardiogram [ECG] [EKG]
CPT/HCPCS: 70450; 71260; 72125; 74177; 81001; 82140; 82375; 82550; 83605; 83735; 84100; 84443; 84484; 85025; 93005; 96360; 96361; 99284; A4353; J7030; Q9967; 82040; 82247; 82310; 82374; 82435; 82565; 82947; 84075; 84132; 84155; 84295; 84450; 84460; 84520

== ENCOUNTER 2018-09-27 19:45 | Emergency (ER) | payer MEDICARE, MEDICAID ==
[~2018-09-27 19:45] MED LIST changes: +DIVA250T33 PO
--- NOTE | 2018-09-27 20:00 | ER Report ---
History and Physical Time Seen By MD: 20:00 HPI/ROS CHIEF COMPLAINT: Seizure, fever HISTORY OF PRESENT ILLNESS: 52-year-old female patient presents to emergency room with complaint of seizure and fever. Patient's caregiver states that this evening she had a seizure. She did fall back and hit her head. Caregiver states that she was wearing her helmet at that time. She denies any loss of consciousness. She states the seizure lasted approximately 2 minutes and then there was a 13 minute postictal phase. She states that at that time she discu ssed this with her supervisor tunnel heading recommended that she bring the patient in for further evaluation. She states that she did check her temperature after the seizure and she had a temperature of 99.4 in the right ear and 100 in the left. Caregiver states that she is not had any nausea, vomiting. She states she has not been her normal self. She seems not as active as normal. She seems to be "out of it". She is not sure what the underlying cause is. Caregiver denies any cough. REVIEW OF SYSTEMS: Respiratory: No cough, no dyspnea. Cardiovascular: No chest pain, no palpitations. Gastrointestinal: No vomiting, no abdominal pain. Musculoskeletal: No back pain. Allergies: Coded Allergies: Penicillins (Verified Allergy, Mild, SWELLING, 09/27/18) 07/16/13- Spoke with patient's mother and clarified allergy to PCN. Reported swelling and hives when given penicillin as an infant. Patient tolerates Imipenem. Lauren Ocampo, PharmD, BCOP ibuprofen (Verified Allergy, Mild, CANNOT TAKE WHILE ON DEPAKOTE, 09/27/18) aspirin (Verified Adverse Reaction, Mild, CANNOT TAKE WHILE ON DEPAKOTE, 09/27/18) naproxen (Verified Adverse Reaction, Mild, CANNOT TAKE WHILE ON DEPAKOTE, 09/27/18) Home Meds Reported Medications Divalproex Sodium (DIVALPROEX SODIUM) 250 Mg Tablet.dr, 250 MG PO AM, TAB 09/25/18 Divalproex Sodium (DIVALPROEX SODIUM) 250 Mg Tablet.dr, 375 MG PO BID, TAB 09/25/18 Ranitidine Hcl (ZANTAC) 150 Mg Tablet, 150 MG PO BID, TAB 11/03/17 Calcium Carbonate/Vitamin D3 (OYSTER SHELL CALCIUM +D TABLET) 1 Each Tablet, 1 EACH PO 11/03/17 Duloxetine HCl (Duloxetine HCl) 60 Mg Capsule.dr, DAILY 11/03/17 Methyl Salicylate/Menthol (THERA-GESIC ANALGESIC CREAM) 85 Gm Cream..g., 85 GM TP PRN 04/09/15 Skin Cleanser (PERIFRESH) 3,840 Ml Cleanser, 3840 ML TP PRN 04/09/15 Oxygen (OXYGEN) Inha, 3 L INH QPM, L 04/09/15 Oxygen (OXYGEN) Inha, 1 L INH DAILY, L 04/09/15 Melatonin (MELATONIN) 3 Mg Tablet.er, 1.5 MG PO DAILY 04/09/15 Levothyroxine Sodium (LEVOTHYROXINE SODIUM) 100 Mcg Tablet, 100 MCG PO QDAY 04/09/15 Levetiracetam (LEVETIRACETAM) 1,000 Mg Tablet, 1000 MG PO BID, TAB 04/09/15 Hydrocortisone/Aloe Vera (HYDROCORTISONE 1% OINTMENT) 28 Gm Oint...g., 28 GM TP PRN 04/09/15 Multivit With Calcium,Iron,Min (ESSENTIAL DAILY) 1 Each Tablet, 1 EACH PO DAILY 04/09/15 Clonazepam (CLONAZEPAM) 0.5 Mg Tablet, 0.5 MG PO TID, #6 TAB 04/09/15 Saline (AYR SALINE NASAL GEL) 14.1 Gm Gel, 14.1 GM NA PRN, GEL 04/09/15 Mag Hydrox/Al Hydrox/Simeth (MAALOX MAXIMUM STRENGTH SUSP) 355 Ml Oral.susp, 5 ML PO PRN PRN for GAS/HEARTBURN 07/08/13 Hydrochlorothiazide (HYDROCHLOROTHIAZIDE) 12.5 Mg Capsule, 1 TAB PO QDAY, CAPSULE TAKE ONE CAPSULE BY MOUTH EVERY DAY 07/08/13 Menthol (BIOFREEZE) 118 Ml Gel..ml., 1 GABRIELLE TP PRN for PAIN 07/08/13 Bacitracin (BACITRACIN ZINC) 0.9 Gm Oint, 0.9 GM TP PRN for RASH 07/08/13 Hydrocortisone (ANUSOL-HC) 30 Gm Cream..g., 30 GM RC PRN for HEMORRHOIDS 07/08/13 Loperamide Hcl (ANTI-DIARRHEAL) 2 Mg Capsule, 2 MG PO PRN PRN for DIARRHEA, CAPSULE 2 tabs after 2 loose stools 07/08/13 Magnesium Hydroxide (MILK OF MAGNESIA) 400 Mg/5 Ml Oral.susp, 30 ML PO PRN PRN for CONSTIPATION 04/18/13 Chlorhexidine (CHLORHEXIDINE FLAVOR) 1 Ml Liquid, 18 ML MC QODAY 04/18/13 Aripiprazole (ABILIFY) 5 Mg Tablet, 10 MG PO QHS 03/21/13 Duloxetine Hcl (Cymbalta) 30 Mg Capcr, 30 MG PO DAILY 03/01/12 Calcium Carbonate/Simethicone (Tums Plus Tab Chew Assorted) 1 Tab.chew Tab.chew, 1 TAB.CHEW PO TID, 0 Refills 07/21/09 Discontinued Reported Medications Docusate Sodium (SILACE) 50 Mg/5 Ml Liquid, 10 MG PO TID 11/03/17 Docusate Sodium (SILACE) 60 Mg/15 Ml Syrup, 60 MG PO TID 04/09/15 Calcium Carbonate/Vitamin D3 (OYSTER SHELL CALCIUM + D TAB) 1 Each Tablet, 1 EACH PO BID 04/09/15 Divalproex Sodium (DIVALPROEX SODIUM) 125 Mg Cap.sprink, 375 MG PO DAILY, CAP 04/09/15 Divalproex Sodium (DIVALPROEX SODIUM) 125 Mg Cap.sprink, 250 MG PO TID, CAP 04/09/15 Calcium Carbonate/Mag Hydrox (ANTACID CHEWABLE TABLET) 1 Each Tab.chew, 500 MG PO PRN, TAB.CHEW 04/09/15 Past Medical/Surgical History Patient has a past medical history of seizures, wears oxygen all the time, pneumonia, osteoporosis, fractures, hypothyroidism, developmental delay. Patient has a surgical history of a vagus nerve stimulator. Reviewed Nurses Notes: Yes Hx Smoking: No Smoking Status: Never Smoker Exposure to Second Hand Smoke?: No Hx Substance Use Disorder: No Hx Alcohol Use: No Constitutional Vital Sign - Last 24 Hours 09/27/18 19:50 Temp 97.7 Pulse 120 Resp 18 B/P (MAP) 107/85 Pulse Ox 88 O2 Delivery Room Air Physical Exam General Appearance: The patient is alert, has no immediate need for airway protection and no current signs of toxicity. Respiratory: Chest is non tender, lungs are clear to auscultation. Cardiac: regular rate and rhythm Gastrointestinal: Abdomen is soft and non tender, no masses, bowel sounds normal. Musculoskeletal: Neck: Neck is supple and non tender. Extremities have full range of motion and are non tender. Skin: No rashes or lesions. DIFFERENTIAL DIAGNOSIS: After history and physical exam differential diagnosis was considered for urinary tract infection, pneumonia, skull fracture, intracranial hemorrhage. Medical Decision Making Data Points Result Diagram: 09/27/18202409/27/182024 Laboratory Hematology Test 09/27/18 20:25 09/27/18 20:54 09/27/18 21:05 Red Blood Count 4.22 M/uL (4.17-5.56) Mean Corpuscular Volume 99.9 fL (80.0-96.0) Mean Corpuscular Hemoglobin 33.2 pg (26.0-33.0) Mean Corpuscular Hemoglobin Concent 33.2 g/dL (32.0-36.0) Red Cell Distribution Width 13.3 % (11.5-14.5) Mean Platelet Volume 8.2 fL (7.2-11.1) Neutrophils (%) (Auto) 57.2 % (39.4-72.5) Lymphocytes (%) (Auto) 27.8 % (17.6-49.6) Monocytes (%) (Auto) 14.3 % (4.1-12.4) Eosinophils (%) (Auto) 0.2 % (0.4-6.7) Basophils (%) (Auto) 0.5 % (0.3-1.4) Nucleated RBC Relative Count (auto) 0.1 /100WBC Neutrophils # (Auto) 4.3 K/uL (2.0-7.4) Lymphocytes # (Auto) 2.1 K/uL (1.3-3.6) Monocytes # (Auto) 1.1 K/uL (0.3-1.0) Eosinophils # (Auto) 0.0 K/uL (0.0-0.5) Basophils # (Auto) 0.0 K/uL (0.0-0.1) Nucleated RBC Absolute Count (auto) 0.01 K/uL Sodium Level 143 mmol/L (137-145) Potassium Level 3.8 mmol/L (3.5-5.0) Chloride Level 101 mmol/L (98-107) Carbon Dioxide Level 38 mmol/L (22-31) Blood Urea Nitrogen 21 mg/dl (7-18) Creatinine 0.80 mg/dl (0.52-1.04) Glomerular Filtration Rate Calc > 60.0 Random Glucose 124 mg/dl (75-110) Calcium Level 9.7 mg/dl (8.4-10.2) Magnesium Level 1.7 mg/dl (1.7-2.2) Total Bilirubin 0.1 mg/dl (0.2-1.3) Aspartate Amino Transf (AST/SGOT) 19 U/L (0-35) Alanine Aminotransferase (ALT/SGPT) 15 U/L (0-56) Alkaline Phosphatase 65 U/L (0-126) Total Protein 6.7 g/dl (6.3-8.2) Albumin 3.6 g/dl (3.5-5.0) Whole Blood Glucose 111 mg/DL (75-110) Urine Color Yellow Urine Clarity Clear Urine pH 7.0 pH (4.8-9.5) Urine Specific [place] 1.027 Urine Protein Negative mg/dL (NEGATIVE) Urine Glucose (UA) Negative mg/dL (NEGATIVE) Urine Ketones Trace mg/dL (NEGATIVE) Urine Blood Negative (NEGATIVE) Urine Nitrite Negative (NEGATIVE) Urine Bilirubin Negative (NEGATIVE) Urine Urobilinogen 0.2 mg/dL (0.2-1.9) Urine Leukocyte Esterase Negative (NEGATIVE) Urine RBC 11 /HPF (0-2/HPF) Urine WBC 4 /HPF (0-5/HPF) Urine Squamous Epithelial Cells None /LPF (NONE-FEW) Urine Bacteria Negative /HPF (NONE-FEW) Urine Mucus Few /HPF (NONE-FEW) Chemistry Test 09/27/18 20:25 09/27/18 20:54 09/27/18 21:05 White Blood Count 7.5 k/uL (4.5-11.0) Red Blood Count 4.22 M/uL (4.17-5.56) Hemoglobin 14.0 g/dL (12.0-16.0) Hematocrit 42.1 % (34.0-47.0) Mean Corpuscular Volume 99.9 fL (80.0-96.0) Mean Corpuscular Hemoglobin 33.2 pg (26.0-33.0) Mean Corpuscular Hemoglobin Concent 33.2 g/dL (32.0-36.0) Red Cell Distribution Width 13.3 % (11.5-14.5) Platelet Count 187 K/uL (150-450) Mean Platelet Volume 8.2 fL (7.2-11.1) Neutrophils (%) (Auto) 57.2 % (39.4-72.5) Lymphocytes (%) (Auto) 27.8 % (17.6-49.6) Monocytes (%) (Auto) 14.3 % (4.1-12.4) Eosinophils (%) (Auto) 0.2 % (0.4-6.7) Basophils (%) (Auto) 0.5 % (0.3-1.4) Nucleated RBC Relative Count (auto) 0.1 /100WBC Neutrophils # (Auto) 4.3 K/uL (2.0-7.4) Lymphocytes # (Auto) 2.1 K/uL (1.3-3.6) Monocytes # (Auto) 1.1 K/uL (0.3-1.0) Eosinophils # (Auto) 0.0 K/uL (0.0-0.5) Basophils # (Auto) 0.0 K/uL (0.0-0.1) Nucleated RBC Absolute Count (auto) 0.01 K/uL Glomerular Filtration Rate Calc > 60.0 Calcium Level 9.7 mg/dl (8.4-10.2) Magnesium Level 1.7 mg/dl (1.7-2.2) Total Bilirubin 0.1 mg/dl (0.2-1.3) Aspartate Amino Transf (AST/SGOT) 19 U/L (0-35) Alanine Aminotransferase (ALT/SGPT) 15 U/L (0-56) Alkaline Phosphatase 65 U/L (0-126) Total Protein 6.7 g/dl (6.3-8.2) Albumin 3.6 g/dl (3.5-5.0) Whole Blood Glucose 111 mg/DL (75-110) Urine Color Yellow Urine Clarity Clear Urine pH 7.0 pH (4.8-9.5) Urine Specific [place] 1.027 Urine Protein Negative mg/dL (NEGATIVE) Urine Glucose (UA) Negative mg/dL (NEGATIVE) Urine Ketones Trace mg/dL (NEGATIVE) Urine Blood Negative (NEGATIVE) Urine Nitrite Negative (NEGATIVE) Urine Bilirubin Negative (NEGATIVE) Urine Urobilinogen 0.2 mg/dL (0.2-1.9) Urine Leukocyte Esterase Negative (NEGATIVE) Urine RBC 11 /HPF (0-2/HPF) Urine WBC 4 /HPF (0-5/HPF) Urine Squamous Epithelial Cells None /LPF (NONE-FEW) Urine Bacteria Negative /HPF (NONE-FEW) Urine Mucus Few /HPF (NONE-FEW) Urinalysis Test 09/27/18 21:05 Urine Color Yellow Urine Clarity Clear Urine pH 7.0 pH (4.8-9.5) Urine Specific [place] 1.027 Urine Protein Negative mg/dL (NEGATIVE) Urine Glucose (UA) Negative mg/dL (NEGATIVE) Urine Ketones Trace mg/dL (NEGATIVE) Urine Blood Negative (NEGATIVE) Urine Nitrite Negative (NEGATIVE) Urine Bilirubin Negative (NEGATIVE) Urine Urobilinogen 0.2 mg/dL (0.2-1.9) Urine Leukocyte Esterase Negative (NEGATIVE) Urine RBC 11 /HPF (0-2/HPF) Urine WBC 4 /HPF (0-5/HPF) Urine Squamous Epithelial Cells None /LPF (NONE-FEW) Urine Bacteria Negative /HPF (NONE-FEW) Urine Mucus Few /HPF (NONE-FEW) EKG/Imaging Imaging PORTABLE CHEST: Indication: Fever and seizure. Technique: A single frontal film was obtained. Comparison: 06/07/2018 Skeletal and soft tissue structures: Intact and unchanged. A neurostimulator remains in place. Heart and mediastinum: Stable. Lung wahl: Fairly well expanded. There are some nonspecific opacities at the bases. No focal consolidation or acute parenchymal process is clearly identified. Pleural spaces: Unremarkable. Impression: No acute process or significant change. Report Dictated By: Ender Abraham MD at 09/27/2018 9:36 PM Report E-Signed By: Ender Abraham MD at 09/27/2018 9:[address]: Indication: Seizures. Technique: Contiguous axial sections were obtained from the base to the vertex without contrast enhancement. One of the following dose optimization techniques was utilized in the performance of this exam: Automated exposure control; adjustment of the mA and/or kV according to the patient's size; or use of an iterative reconstruction technique. Specific details can be referenced in the facility's radiology CT exam operational policy. Comparison: 09/25/2018 Findings: There is no evidence of intra-axial or extra-axial hemorrhage. There is an old infarct in the left temporo-occipital region. There is chronic cortical atrophy and periventricular dilatation. There is no mass effect or midline shift. No new focal areas of decreased or increased attenuation are identified. The size, shape, and configuration of the ventricular system are able. Soft tissue swelling on the left side of the scalp is unchanged. No fracture or acute skeletal deformity is identified. The visualized paranasal sinuses and mastoid air cells are clear. Impression: No acute process or significant change. Report Dictated By: Ender Abraham MD at 09/27/2018 9:39 PM Report E-Signed By: Ender Abraham MD at 09/27/2018 9:47 PM ED Course/Re-evaluation ED Course Patient is admitted and examined, history and physical were obtained. Differential diagnoses were considered. On examination lungs are clear, heart is regular, abdomen soft nontender. Patient did not have any tenderness anywhere that I palpated. With patient falling and hitting her head even though she is regular, we'll go ahead and do a CT scan of the head, a chest x-ray will be done as well as a urinalysis due to the fever. A CBC, CMP were also done. The lab results were unremarkable. Chest x-ray was negative and CT scan of the head showed no acute findings. I discussed the findings with the patient and her caregiver. I believe that her being fatigue and not quite acting like herself is likely related to a viral infection, I was most likely indicated by the elevated monocytes. I would like him to follow-up with neurology, calling to make an appointment tomorrow. She is return to the emergency room if condition worsens. Caregiver verbalized understanding and agreement with plan. Decision to Disposition Date: September 27, 2018 Decision to Disposition Time: 22:20 Depart Departure Latest Vital Signs Vital Signs Date Time Temp Pulse Resp B/P (MAP) Pulse Ox O2 Delivery O2 Flow Rate FiO2 09/27/18 19:50 97.7 120 18 107/85 88 Room Air Impression: Primary Impression: Seizure Additional Impression: Viral syndrome Condition: Improved Disposition: HOME OR SELF-CARE Referrals: DIONI FLETCHER DO (PCP) Patient Instructions: Recurrent Seizures in Adults (ED) Additional Instructions: Increase fluid intake. Get plenty of rest. I think that her being more fatigued than normal is more related to a viral illness and will clear on its own. Follow up with neurology, call tomorrow to make an appointment. Return to the ER if condition worsens. Continue with current medications. Problem Qualifiers OLESYA RODAS September 27, 2018 20:00
[2018-09-27] MEDS ORDERED: NS(*) 0.9% 1000 ML BAG 1,000 ML IV ONE (20:13)
[2018-09-27] MEDS ORDERED: KETAMINE HCL 500 MG/5 ML VIAL IM ONE (20:25)
[2018-09-27 20:40] LABS: PLATELET COUNT, AUTOMATED 187 K/uL (150-450)
[2018-09-27] MEDS ORDERED: KETAMINE HCL 500 MG/5 ML VIAL IVP ONE (20:45)
--- NOTE | 2018-09-27 21:43 | RADIOLOGY IMAGING REPORT ---
FACILITY: [facility] PATIENT NAME: Glenys Saucedo : 1965 MR: [id number] V: [id number] EXAM DATE: ORDERING PHYSICIAN: OLESYA RODAS TECHNOLOGIST: Location: [facility] Patient: Gelnys Saucedo : 1965 Visit/Account:[id number] Date of Sevice: 09/27/2018 PORTABLE CHEST: Indication: Fever and seizure. Technique: A single frontal film was obtained. Comparison: 06/07/2018 Skeletal and soft tissue structures: Intact and unchanged. A neurostimulator remains in place. Heart and mediastinum: Stable. Lung wahl: Fairly well expanded. There are some nonspecific opacities at the bases. No focal consol idation or acute parenchymal process is clearly identified. Pleural spaces: Unremarkable. Impression: No acute process or significant change. Report Dictated By: Ender Abraham MD at 09/27/2018 9:36 PM Report E-Signed By: Ender Abraham MD at 09/27/2018 9:39 PM WSN:[id number]
--- NOTE | 2018-09-27 21:52 | RADIOLOGY IMAGING REPORT ---
FACILITY: PATIENT NAME: Glenys Saucedo : 1965 MR: [id number] V: [id number] EXAM DATE: ORDERING PHYSICIAN: OLESYA RODAS TECHNOLOGIST: Location: [facility] Patient: Glenys Saucedo : 1965 Visit/Account:[id number] Date of Sevice: 09/27/[address]: Indication: Seizures. Technique: Contiguous axial sections were obtained from the base to the vertex without contrast enhan cement. One of the following dose optimization techniques was utilized in the performance of this exam: Autom ated exposure control; adjustment of the mA and/or kV according to the patient's size; or use of an i terative reconstruction technique. Specific details can be referenced in the facility's radiology CT exam operational policy. Comparison: 09/25/2018 Findings: There is no evidence of intra-axial or extra-axial hemorrhage. There is an old infarct in t he left temporo-occipital region. There is chronic cortical atrophy and periventricular dilatation. T here is no mass effect or midline shift. No new focal areas of decreased or increased attenuation are identified. The size, shape, and configuration of the ventricular system are able. Soft tissue swelling on the left side of the scalp is unchanged. No fracture or acute skeletal deform ity is identified. The visualized paranasal sinuses and mastoid air cells are clear. Impression: No acute process or significant change. Report Dictated By: Ender Abraham MD at 09/27/2018 9:39 PM Report E-Signed By: Ender Abraham MD at 09/27/2018 9:47 PM WSN:[id number]
[2018-09-27 22:30] VITALS: BP 98/72
== END 2018-09-27 22:34 | disposition home or self-care (01) ==
LOC: ER 20:10
DX: R56.9 Unspecified convulsions (principal); B34.9 Viral infection, unspecified
CPT/HCPCS: 36416; 70450; 71045; 81001; 82948; 83735; 85025; 96361; 96374; 99284; A4353; J7030; 82040; 82247; 82310; 82374; 82435; 82565; 82947; 84075; 84132; 84155; 84295; 84450; 84460; 84520

== ENCOUNTER → 2018-11-13 | Outpatient (CLI) | payer MEDICARE, MEDICAID ==
[~2018-11-13] MED LIST changes: -RANI-366 PO; +RANI-54 PO
== END ==
LOC: LAB 14:24
PROVIDERS: ATTEND Family Medicine
DX: R35.0 Frequency of micturition (principal); R82.79 Other abnormal findings on microbiological examination of urine
CPT/HCPCS: 81001; 87088